=== PATIENT | female | born 1935 | race Caucasian/White ===

== ENCOUNTER 2019-01-12 15:35 | Inpatient (IN) | payer MEDICARE, OTHER ==
[~2019-01-12] VITALS: Ht 154.9 cm; Wt 89.9 kg
[2019-01-12 17:13] LABS: Basophils # (auto) 0.2 uL; Basophils % (auto) 1.1 % (0.0-2.0); Eosinophils # (auto) 0.1 uL; Hematocrit 40.5 % (36.0-46.0); Hemoglobin 13.1 g/dL (12.2-16.2); INR 1.02 (0.9-1.15); Lymphocytes # (auto) 1.7 uL; Lymphocytes % (auto) 11.8 % (10.0-50.0); Mean Corpuscular Hemoglobin 29.8 pg (28.0-32.0); Mean Corpuscular Hgb Conc. 32.4 g/dL (32.0-36.0); Mean Corpuscular Volume 91.9 fL (80.0-100.0); Monocytes # (auto) 0.7 uL; Neutrophils # (auto) 11.6 uL; Neutrophils % (auto) 81.1 % (37.0-80.0); Nucleated Red Blood Cells % 0.1 %; Partial Thromboplastin Time 26.5 sec (23.64-32.05); Platelet Count (auto) 128 10^3/uL (140-450); Red Blood Cells 4.41 10^6/uL (4.0-5.20); Red Cell Distribution Width 14.6 % (11.8-14.3); White Blood Cell 14.3 10^3/uL (4.4-10.8)
[2019-01-12 17:15] LABS: Alanine Aminotransferase 15 U/L (13-56); Albumin 3.7 g/dL (3.4-5.0); Anion Gap 6 (5-15); Aspartate Aminotransferase 18 U/L (15-37); BUN/Creatinine Ratio 23.7; Blood Urea Nitrogen 31 mg/dL (7-18); Calcium 8.8 mg/dL (8.5-10.1); Carbon Dioxide 27 mmol/L (21-32); Chloride 106 mmol/L (98-107); GFR African American 50 mL/min; GFR Non-African American 41 mL/min; Glucose 112 mg/dL (74-106); Potassium 4.5 mmol/L (3.5-5.1); Sodium 139 mmol/L (136-145)
[2019-01-12 17:21] LABS: Alkaline Phosphatase 80 U/L (45-117); Bilirubin, Total 0.4 mg/dL (0.2-1.0); Total Protein 7.6 g/dL (6.4-8.2)
[2019-01-12] MEDS ORDERED: NITROGLYCERIN 0.4 MG SL TAB SL PRN (19:15)
[2019-01-12] MEDS ORDERED: ALUM & MAG HYDROX-SIMETH LIQ(MAALOX) 30 ML PO ONE (19:15)
[2019-01-12] MEDS ORDERED: ONDANSETRON HCL 4 MG/2 ML VIAL IV PRN (19:15)
[2019-01-12] MEDS ORDERED: HYDROcodone-ACET 5/325MG TAB PO PRN (19:15)
[2019-01-12] MEDS ORDERED: ZOLPIDEM TARTRATE 5 MG TAB PO PRN (19:15)
[2019-01-12] MEDS ORDERED: ONDANSETRON HCL 4 MG/2 ML VIAL IV ONE (19:30)
[2019-01-12] MEDS ORDERED: TETANUS-DIPTH-ACEL PERTUSSIS 0.5ML SYRG IM ONE (19:30)
[2019-01-12] MEDS ORDERED: MORPHINE SULF INJ 2 MG/ML SYRINGE 1ML IV ONE (19:30)
[2019-01-12] MEDS ORDERED: MORPHINE SULF INJ 2 MG/ML SYRINGE 1ML IV PRN (21:15)
[2019-01-12 22:00] VITALS: BP 124/58
--- NOTE | 2019-01-12 22:00 | NUR ---
Telemetry admit from ER ELIASALLA COBOS admitted to Telemetry unit after SBAR received. Patient oriented to Madhavi Munroe RN primary RN, unit, room, bed, and unit policies regarding patient care and visiting hours. Patient now on continuous telemetry monitoring, tele box # 68 and telemetry reading on arrival to unit is SR. Patient placed on bedside oxygen at 2 Lpm/NC, weighed by bedscale and encouraged to call if they need something. All questions and concerns addressed, patient and family verbalized understanding, will continue to monitor Note: []
[2019-01-12] MEDS ORDERED: PRIMIDONE 50 MG TAB PO ONE (22:30)
[2019-01-12 22:36] LABS: Urine Bacteria MOD /hpf (None Seen); Urine Blood Negative /uL (Negative); Urine Specific Gravity 1.017 (1.001-1.035); Urine WBC 618 /hpf (0 - 5); Urine WBC Clumps PRESENT /hpf (None Seen)
[2019-01-12] MEDS ORDERED: VANCOMYCIN PER PHARMACY 0 MG IV SCH (22:45)
--- NOTE | 2019-01-12 22:50 | NUR ---
Respiratory note: at beside to assess pts concerns with noc cpap. VEENA Sam made aware of conversation.
[2019-01-12] MEDS: HYDROcodone-ACET 7.5/325MG TAB PO PRN (22:58)
[2019-01-12] MEDS ORDERED: VANCOMYCIN 1GM/250ML 250 ML IV SCH (23:00)
--- NOTE | 2019-01-12 23:00 | NUR ---
Respiratory note: ORDERS RECEIVED FOR NOC CPAP BY SUSI KHAN.
[2019-01-12] MEDS: SODIUM CHLORIDE 0.9% 1,000 ML IV SCH (23:22)
[2019-01-12 23:24] VITALS: BP 124/58
[2019-01-13 00:01] VITALS: BP 124/58
[2019-01-13] MEDS: PIPERACILLIN-TAZOB 2.25GM 50 ML IV SCH ×4 (01:06→17:48)
[2019-01-13] MEDS ORDERED: AMIO200T33 PO (01:23)
[2019-01-13] MEDS ORDERED: [UNRECOGNIZED DRUG - CODE] SC (01:23)
[2019-01-13] MEDS ORDERED: OMEP20TA PO (01:23)
[2019-01-13] MEDS ORDERED: LORA-622 PO (01:23)
[2019-01-13] MEDS ORDERED: METO25TA62 PO (01:23)
[2019-01-13] MEDS ORDERED: HYDR-4833 PO (01:23)
[2019-01-13] MEDS ORDERED: APIX5TAB PO (01:23)
[2019-01-13] MEDS ORDERED: ALPR0.254 PO (01:23)
[2019-01-13] MEDS ORDERED: CHOL20007 PO (01:23)
[2019-01-13] MEDS ORDERED: POTA10TA51 PO (01:23)
[2019-01-13] MEDS ORDERED: SILD50TA42 PO (01:23)
[2019-01-13] MEDS ORDERED: DILT30TA24 PO (01:23)
[2019-01-13] MEDS ORDERED: LEVO200T7 PO (01:23)
[2019-01-13] MEDS ORDERED: FURO40TA4 PO (01:23)
[2019-01-13] MEDS ORDERED: PREG75CA PO (01:23)
[2019-01-13] MEDS ORDERED: LISI-275 PO (01:23)
[2019-01-13] MEDS ORDERED: PRIM50TA5 PO (01:23)
[2019-01-13] MEDS ORDERED: CALCCHW53 OR (01:23)
--- NOTE | 2019-01-13 04:00 | NUR ---
Patient is grimacing for pain, explained that pain med is not yet due at this time. Per patient, she's taking Gowen q4 hours at home. Patient wanted to take one now as the pain is severe. Paged hospitalist, awaiting call back
[2019-01-13 05:07] VITALS: BP 109/62
--- NOTE | 2019-01-13 05:55 | NUR ---
Hospitalist Alan called back, received order at this time, will carry out order
[2019-01-13] MEDS ORDERED: KETOROLAC TROMETH 30 MG/ML 1ML VIAL IV ONE (06:00)
[2019-01-13 06:28] LABS: Hematocrit 35.1 % (36.0-46.0); Hemoglobin 11.4 g/dL (12.2-16.2); Mean Corpuscular Hgb Conc. 32.6 g/dL (32.0-36.0); Mean Corpuscular Volume 92.1 fL (80.0-100.0); Platelet Count (auto) 121 10^3/uL (140-450); Red Blood Cells 3.81 10^6/uL (4.0-5.20); Red Cell Distribution Width 14.5 % (11.8-14.3); White Blood Cell 18.8 10^3/uL (4.4-10.8)
[2019-01-13 06:34] LABS: Basophils % (manual) 0 (0.0-2.0); Blast Cells 0; Eosinophils % (manual) 0 (0-7); Promyelocytes % 0; Reactive Lymphocytes 0
[2019-01-13 06:37] LABS: Albumin 3.2 g/dL (3.4-5.0); Calcium 8.3 mg/dL (8.5-10.1); INR 1.01 (0.9-1.15); Magnesium 1.9 mg/dL (1.6-2.6); Partial Thromboplastin Time 28.1 sec (23.64-32.05); Potassium 4.7 mmol/L (3.5-5.1)
[2019-01-13 06:41] LABS: BUN/Creatinine Ratio 24.7; Bilirubin, Total 0.4 mg/dL (0.2-1.0); Phosphorus 3.6 mg/dL (2.5-4.90); Total Protein 6.4 g/dL (6.4-8.2)
[2019-01-13] MEDS: SODIUM CHLORIDE 0.9% 1,000 ML IV SCH ×2 (06:49→14:58)
[2019-01-13 06:58] LABS: Cholesterol 150 mg/dL (< 200); HDL Cholesterol 38 mg/dL (40-59); LDL Cholesterol 98 mg/dL (< 100); Triglycerides 123 mg/dL (< 150)
[2019-01-13 07:18] LABS: Band Neutrophils % (manual) 2; Lymphocytes % (manual) 7 (10.0-50.0); Metamyelocytes % 1; Monocytes % (manual) 7 (0-12); Myelocytes % 1
--- NOTE | 2019-01-13 08:15 | NUR ---
Opening Shift Note Assumed care of patient, awake, alert and oriented. No S/S of distress/SOB or pain. Instructed on POC and to call for assist PRN. Bed in lowest locked position, call light within reach, side rails up x2. Will continue to monitor for changes Q1hr and PRN.
[2019-01-13 09:00] VITALS: BP 103/58
[2019-01-13] MEDS: DOCUSATE SOD 100 MG CAP PO SCH (09:47)
[2019-01-13] MEDS: ENOXAPARIN SOD 40 MG/0.4 ML SYRINGE SC SCH (09:48)
[2019-01-13] MEDS: HYDROcodone-ACET 7.5/325MG TAB PO PRN (09:56)
--- NOTE | 2019-01-13 11:20 | NUR ---
MD ROUNDS DR Raman FISCHER AT BEDSIDE DISCUSSING POC WITH PATIENT. ALL QUESTIONS/CONCERNS ANSWERED. NEW ORDERS RECEIVED/CARRIED OUT. WILL CONTINUE TO MONITOR
--- NOTE | 2019-01-13 11:47 | NUR ---
UA URINE SAMPLE SENT
--- NOTE | 2019-01-13 12:00 | NUR ---
WOUND CARE NOTE: WOUND CONSULT ORDERED FOR PATIENT WITH WOUND TO FOREHEAD SEEN UPON ADMIT. WOUND PHOTO WAS TAKEN AT THAT TIME BY BEDSIDE NURSE FOR REFERENCE. PATIENT WAS ADMITTED TO [facility] WITH DIAGNOSIS OF PRESYNCOPE AND SHOULDER FRACTURE. PATIENT IS S/P FALL FOLLOWING AN EPISODE WITH NEAR SYNCOPE. SHE WAS RENDERED WITH AN ABRASION TO THE LEFT TEMPORAL HEAD, AND SHOULDER FRACTURE. PATIENT HAS CURRENT MARCELL SCORE OF 16. SHE IS ABLE TO SELF TURN/REPOSITION SELF. PATIENT'S ABRASION TO THE HEAD IS NOT OPEN, SCABBED CLOSED. NO NEED FOR DRESSING. IMPLEMENTED SKIN/WOUND CARE PLAN PER PROTOCOL. NO WOUND CARE MONITORING IS NEEDED AT THIS TIME.
[2019-01-13 13:00] VITALS: BP 99/57
[2019-01-13] MEDS: HYDROmorphone HCL 2 MG/ML VL IV PRN ×2 (14:57→21:43)
[2019-01-13 17:00] VITALS: BP 107/55
--- NOTE | 2019-01-13 19:20 | NUR ---
Opening Shift Note Report received from day shift RN. Assumed care of patient. Patient awake laying in bed, alert and oriented x4. No S/S of distress/SOB noted. Patient states pain is tolerable at this time. Frazier draining freely and hung below bladder free of any obstructions. Instructed on POC and to call for assist PRN. Bed locked in lowest position with side rails up x2 and bed alarm on. Call light within reach. Will continue to monitor for changes Q1hr and PRN.
[2019-01-13] MEDS: VANCOMYCIN 750mg/250ml 250 ML IV SCH (21:42)
[2019-01-13] MEDS: PRIMIDONE 50 MG TAB PO SCH (21:42)
[2019-01-13 22:30] VITALS: BP 110/54
[2019-01-14] MEDS: PIPERACILLIN-TAZOB 2.25GM 50 ML IV SCH ×4 (00:36→17:37)
[2019-01-14] MEDS: SODIUM CHLORIDE 0.9% 1,000 ML IV SCH ×3 (05:02→14:45)
[2019-01-14 05:20] VITALS: BP 113/61
--- NOTE | 2019-01-14 06:14 | NUR ---
Respiratory note: PT REQUESTING TO BE TAKEN OFF HOSPITAL CPAP UNIT AT THIS TIME. PT PLACED ON 2L NC SPO2 96% HR 66 RR 16. NO RESPIRATORY DISTRESS NOTED. RN MADE AWARE.
[2019-01-14] MEDS: HYDROmorphone HCL 2 MG/ML VL IV PRN ×3 (06:21→18:46)
[2019-01-14 09:00] VITALS: BP 120/60
[2019-01-14 09:55] LABS: Hematocrit 32.1 % (36.0-46.0); Hemoglobin 10.6 g/dL (12.2-16.2); Mean Corpuscular Hemoglobin 30.5 pg (28.0-32.0); Mean Corpuscular Volume 92.3 fL (80.0-100.0); Platelet Count (auto) 124 10^3/uL (140-450); Red Blood Cells 3.48 10^6/uL (4.0-5.20); Red Cell Distribution Width 14.7 % (11.8-14.3)
[2019-01-14 10:08] LABS: Basophils % (manual) 0 (0.0-2.0); Blast Cells 0; Promyelocytes % 0
[2019-01-14] MEDS: DOCUSATE SOD 100 MG CAP PO SCH (10:09)
[2019-01-14] MEDS: ENOXAPARIN SOD 40 MG/0.4 ML SYRINGE SC SCH (10:10)
--- NOTE | 2019-01-14 10:20 | NUR ---
Attempted PT treatment session but pt stated, "I want to do physical therapy but I am too tired right now." Advised pt we will return at a later time.
[2019-01-14 10:51] LABS: Potassium 4.3 mmol/L (3.5-5.1); Sodium 140 mmol/L (136-145)
[2019-01-14 10:52] LABS: Anion Gap 7.8 (5-15); BUN/Creatinine Ratio 19.8; Blood Urea Nitrogen 17 mg/dL (7-18); Calcium 8.1 mg/dL (8.5-10.1); Carbon Dioxide 25.2 mmol/L (21-32); Chloride 107 mmol/L (98-107); GFR African American 81 mL/min; GFR Non-African American 67 mL/min; Glucose 165.9 mg/dL (74-106)
[2019-01-14 12:17] LABS: Band Neutrophils % (manual) 1; Eosinophils % (manual) 2 (0-7); Lymphocytes % (manual) 15 (10.0-50.0); Metamyelocytes % 1; Monocytes % (manual) 5 (0-12); Myelocytes % 2; Reactive Lymphocytes 1
[2019-01-14 13:00] VITALS: BP 140/71
[2019-01-14 17:00] VITALS: BP 155/71
--- NOTE | 2019-01-14 18:00 | NUR ---
IV removal IV to left hand DC'd, due to dislodgement,with sterile technique, catheter fully intact. Pressure dressing applied to site. Patient tolerated procedure well.
--- NOTE | 2019-01-14 18:00 | NUR ---
IV insertion IV access obtained, via clean sterile technique by inserting 22 gauge catheter at left forearm after one attempt IV secured properly. No trauma to site. Patient tolerated procedure well.
[2019-01-14 22:00] VITALS: BP 126/59
[2019-01-14] MEDS: PRIMIDONE 50 MG TAB PO SCH (22:22)
[2019-01-14] MEDS: VANCOMYCIN 750mg/250ml 250 ML IV SCH (22:22)
[2019-01-15] MEDS: SODIUM CHLORIDE 0.9% 1,000 ML IV SCH ×3 (00:08→16:07)
[2019-01-15] MEDS: PIPERACILLIN-TAZOB 2.25GM 50 ML IV SCH ×3 (00:08→11:32)
[2019-01-15] MEDS: HYDROmorphone HCL 2 MG/ML VL IV PRN ×3 (00:58→19:25)
[2019-01-15 06:00] VITALS: BP 122/60
--- NOTE | 2019-01-15 06:35 | NUR ---
Respiratory note: PT REQUESTING TO BE TAKEN OFF HOSPITAL CPAP UNIT AT THIS TIME. PT PLACED ON 2L NC SPO2 96% HR 61 RR 16. NO RESPIRATORY DISTRESS NOTED. RN MADE AWARE.
[2019-01-15 06:50] LABS: Hematocrit 30.4 % (36.0-46.0); Hemoglobin 9.9 g/dL (12.2-16.2); Mean Corpuscular Hgb Conc. 32.5 g/dL (32.0-36.0); Mean Corpuscular Volume 92.3 fL (80.0-100.0); Platelet Count (auto) 121 10^3/uL (140-450); Red Cell Distribution Width 14.5 % (11.8-14.3)
[2019-01-15 07:01] LABS: BUN/Creatinine Ratio 15.3; Calcium 8.2 mg/dL (8.5-10.1); Potassium 4.6 mmol/L (3.5-5.1)
[2019-01-15 07:02] LABS: Basophils % (manual) 0 (0.0-2.0); Blast Cells 0; Myelocytes % 0; Promyelocytes % 0; Reactive Lymphocytes 0
--- NOTE | 2019-01-15 07:20 | NUR ---
Open Shift Note Received report on patient, awake and sitting up in bed. Patient shows no signs of distress at this time but states she has pain in right shoulder. Discussed pain management with patient but patient states she does not want any medication at this time. Patient also states she takes multiple medications at home but is not receiving them here. Verified home medications in the med rec and stated the Dr will be made aware today. Patient verbalized understanding. Discussed rest of POC with patient and transition nurse Tiffany. Bed in lowest locked position, side rails up x2 and call light within reach. Will continue to monitor.
[2019-01-15 07:53] LABS: Band Neutrophils % (manual) 1; Eosinophils % (manual) 2 (0-7); Lymphocytes % (manual) 16 (10.0-50.0); Metamyelocytes % 2; Monocytes % (manual) 15 (0-12)
[2019-01-15 09:00] VITALS: BP 135/74
[2019-01-15] MEDS: ENOXAPARIN SOD 40 MG/0.4 ML SYRINGE SC SCH (09:55)
[2019-01-15] MEDS: DOCUSATE SOD 100 MG CAP PO SCH (10:00)
--- NOTE | 2019-01-15 11:47 | NUR ---
Cheryl Had sling delivered to patient bedside but patient states that Dr Yu told her Bryson from Ortho would be coming to apply it. Paged Bryson from ortho, awaiting call back.
[2019-01-15 13:00] VITALS: BP 149/75
[2019-01-15] MEDS ORDERED: MILK OF MAGNESIA 30ML SUSP PO ONE (13:45)
[2019-01-15] MEDS ORDERED: LISINOPRIL 5 MG TAB PO ONE (13:45)
[2019-01-15] MEDS ORDERED: AMIODARONE HCL 200 MG TAB PO ONE (13:45)
[2019-01-15] MEDS: PRIMIDONE 50 MG TAB PO SCH ×2 (14:36→22:52)
--- NOTE | 2019-01-15 16:00 | NUR ---
D/C Planning Per consult for SNF placement. Pt requested [facility]. Contacted [facility] Ph:) Fax:) Faxed medical records. Per Charley from [facility] Pt has been accepted to room [address] Armenta. Will set up transportation upon d/c day. Informed VEENA Pulido. Addendum: 01/16/19 at 0856 by SARY ONEAL Amended: Links added.
[2019-01-15] MEDS: SILDENAFIL CITRATE 20 MG TAB PO SCH ×2 (16:27→21:00)
[2019-01-15 17:00] VITALS: BP 157/78
[2019-01-15] MEDS ORDERED: cefTRIAXone 1GM/50ML D5W 50 ML IV SCH (17:00)
--- NOTE | 2019-01-15 19:17 | NUR ---
End of Shift Endorsed care to NOC nurse. Patient shows no signs of distress at this time.
--- NOTE | 2019-01-15 19:30 | NUR ---
Opening Shift Note Assumed care of patient, awake and alert. Medicated for pain 5 mins. earlier. Instructed on POC and to call for assist PRN; RN will continue to monitor for changes Q1hr and PRN. HOB in semi-Prince's position. R arm in sling. Nurse call light within reach of pt's left hand. Bed in low position and locked. HOB rails x2 up.
[2019-01-15] MEDS: APIXABAN 5 MG TAB PO SCH (22:00)
[2019-01-15] MEDS: PREGABALIN CAPSULE 75 MG CAP PO SCH (22:00)
[2019-01-15 22:58] VITALS: BP 109/56
[2019-01-16] MEDS: SODIUM CHLORIDE 0.9% 1,000 ML IV SCH (02:05)
[2019-01-16] MEDS: HYDROmorphone HCL 2 MG/ML VL IV PRN ×2 (02:30→11:15)
--- NOTE | 2019-01-16 02:34 | NUR ---
Dilaudid given for pain in R shoulder.
[2019-01-16 03:14] VITALS: BP 109/56
[2019-01-16 05:42] VITALS: BP 95/49
--- NOTE | 2019-01-16 06:28 | NUR ---
Respiratory note: PT REMOVED FROM THE CPAP PER HER REQUEST AND HAS BEEN PLACED ON A 2L NC. NO SOB NOTED. POX 92%, HR 63, RR 14. CONTINUOUS POX REMAINS ON AND FUNCTIONAL. ALARMS ARE ON AND AUDIBLE.
[2019-01-16 07:00] LABS: Hematocrit 28.8 % (36.0-46.0); Hemoglobin 9.5 g/dL (12.2-16.2); Mean Corpuscular Hemoglobin 30.8 pg (28.0-32.0); Mean Corpuscular Hgb Conc. 33.1 g/dL (32.0-36.0); Mean Corpuscular Volume 93.2 fL (80.0-100.0); Platelet Count (auto) 127 10^3/uL (140-450); Red Blood Cells 3.09 10^6/uL (4.0-5.20); Red Cell Distribution Width 14.2 % (11.8-14.3); White Blood Cell 10.9 10^3/uL (4.4-10.8)
[2019-01-16] MEDS ORDERED: LEVOTHYROXINE SODIUM 25 MCG TAB PO SCH (07:00)
[2019-01-16 07:03] LABS: Band Neutrophils % (manual) 0; Basophils % (manual) 0 (0.0-2.0); Blast Cells 0; Promyelocytes % 0; Reactive Lymphocytes 0
--- NOTE | 2019-01-16 07:18 | NUR ---
Opening Note Received report on the patient. Awake lying in bed. Patient shows no signs of distress at this time. Discussed plan of care with the patient. bed is in lowest position, side rails up x2, and call light is within reach. Will continue to monitor.
[2019-01-16 07:42] LABS: Eosinophils % (manual) 5 (0-7); Lymphocytes % (manual) 14 (10.0-50.0); Metamyelocytes % 4; Monocytes % (manual) 8 (0-12); Myelocytes % 3
[2019-01-16] MEDS: SILDENAFIL CITRATE 20 MG TAB PO SCH ×2 (08:32→15:21)
[2019-01-16 08:52] VITALS: BP 138/70
[2019-01-16] MEDS ORDERED: LISINOPRIL 5 MG TAB PO SCH (10:00)
[2019-01-16] MEDS ORDERED: DILTIAZEM HCL 60 MG TAB PO SCH (10:00)
[2019-01-16] MEDS: DOCUSATE SOD 100 MG CAP PO SCH (10:00)
[2019-01-16] MEDS ORDERED: METOPROLOL SUCCINATE XL 50 MG TAB PO SCH (10:00)
[2019-01-16] MEDS ORDERED: AMIODARONE HCL 200 MG TAB PO SCH (10:00)
[2019-01-16] MEDS: PREGABALIN CAPSULE 75 MG CAP PO SCH (10:00)
[2019-01-16] MEDS ORDERED: POTASSIUM CHL 20 Meq TABLET PO SCH (10:00)
[2019-01-16] MEDS ORDERED: FUROSEMIDE 20 MG TAB PO SCH (10:00)
[2019-01-16] MEDS: APIXABAN 5 MG TAB PO SCH (10:00)
[2019-01-16] MEDS: PRIMIDONE 50 MG TAB PO SCH (11:14)
[2019-01-16 11:55] VITALS: BP 138/70
--- NOTE | 2019-01-16 12:20 | NUR ---
D/C planning Contacted [facility] Ph:) spoke to Hernandez. Advised Hernandez from [facility] to arrange transportation between 14:30-15:30 via gurney with oxygen. Informed VEENA Pulido.
--- NOTE | 2019-01-16 12:30 | NUR ---
Report Given to [facility] Report given to [facility]. Receiving nurse Blanca. Report given by transition nurse Tiffany.
[2019-01-16 13:00] VITALS: BP 125/67
--- NOTE | 2019-01-16 15:00 | NUR ---
Transferred Patient transferred to [facility]. Room 407-1. Patient shows no signs of distress at this time. Wound photo taken of forehead. IV removed using clean, sterile technique, catheter intact and dressing applied. Tele box removed, cleaned and sent back to ICU. Frazier in place and will remain in place to [place] per doctor's request.
--- NOTE | 2019-01-16 16:58 | NUR ---
assessment Patient is a 83 year old female who is alert and oriented. Patients cognitive abilities are intact. Prior to admission patient lived home with family and functioned with assistance. Per patient she has agreed to SNF placement at [facility]. Patient informed me she has a rollator and wheelchair for home use. Patient informed me her PCP is Dr Herrera in [facility]. Patients family assist her at home with cooking and cleaning and driving. I informed patient she has a right to speak to a social media project manager regarding all care. I informed patient she has a right to participate in any and all discharge planning. Patient has a POA and advanced directive. Patients daughter Radha Mays is her POA. Patient verbalized understanding and agreed to discharge plan to SNF.. Addendum: 01/16/19 at 1701 by Maggie VILLA Amended: Links added.
== END 2019-01-16 15:05 | DRG 871 ==
LOC: ER 15:35 → EDBD 15:35 → TELE 15:36 → TELE-WESTW 21:36
PROVIDERS: ADMIT Hospitalist; ATTEND Family Medicine
DX: A41.9 Sepsis, unspecified organism (principal); R65.21 Severe sepsis with septic shock; S42.211A Unspecified displaced fracture of surgical neck of right humerus, initial encounter for closed fracture; S42.251A Displaced fracture of greater tuberosity of right humerus, initial encounter for closed fracture; S42.261A Displaced fracture of lesser tuberosity of right humerus, initial encounter for closed fracture; L03.115 Cellulitis of right lower limb; L03.116 Cellulitis of left lower limb; N39.0 Urinary tract infection, site not specified; I13.0 Hypertensive heart and chronic kidney disease with heart failure and stage 1 through stage 4 chronic kidney disease, or unspecified chronic kidney disease; S00.03XA Contusion of scalp, initial encounter; N18.3 Chronic kidney disease, stage 3 (moderate); G25.0 Essential tremor; R26.9 Unspecified abnormalities of gait and mobility; G47.33 Obstructive sleep apnea (adult) (pediatric); I48.91 Unspecified atrial fibrillation; J44.9 Chronic obstructive pulmonary disease, unspecified; W18.39XA Other fall on same level, initial encounter; C50.919 Malignant neoplasm of unspecified site of unspecified female breast; I87.2 Venous insufficiency (chronic) (peripheral); I50.9 Heart failure, unspecified; G47.00 Insomnia, unspecified; M81.0 Age-related osteoporosis without current pathological fracture; E66.9 Obesity, unspecified; M25.411 Effusion, right shoulder; D69.6 Thrombocytopenia, unspecified; Y93.89 Activity, other specified; Y99.8 Other external cause status; Z90.49 Acquired absence of other specified parts of digestive tract; Y92.098 Other place in other non-institutional residence as the place of occurrence of the external cause; Z87.440 Personal history of urinary (tract) infections; Z95.0 Presence of cardiac pacemaker; Z82.49 Family history of ischemic heart disease and other diseases of the circulatory system; Z80.3 Family history of malignant neoplasm of breast; Z82.3 Family history of stroke; Z91.041 Radiographic dye allergy status; Z88.8 Allergy status to other drugs, medicaments and biological substances; Z85.72 Personal history of non-Hodgkin lymphomas; Z23 Encounter for immunization; Z79.899 Other long term (current) drug therapy; Z68.37 Body mass index [BMI] 37.0-37.9, adult
CPT/HCPCS: 36415; 70450; 71045; 72125; 73030; 73200; 80048; 80053; 80061; 80202; 81001; 83036; 83735; 84100; 84484; 85007; 85025; 85027; 85610; 85730; 87040; 87081; 87086; 90715; 93005; 93306; 94660; 97116; 97163; 97530; G0378; J0696; J1885; J2405; J2543

== ENCOUNTER 2019-03-03 17:30 | Inpatient (IN) | payer MEDICARE, OTHER ==
[~2019-03-03] VITALS: Ht 154.9 cm; Wt 89.8 kg
[~2019-03-03 17:30] MED LIST: ALPR0.254 PO; AMIO200T33 PO; APIX5TAB PO; CALCCHW53 OR; CHOL20007 PO; DILT30TA24 PO; FURO40TA4 PO; HYDR-4833 PO; LEVO200T7 PO; LISI-275 PO; LORA-622 PO; METO25TA93 PO; OMEP20TA PO; POTA10TA51 PO; PREG75CA PO; PRIM50TA5 PO; SILD50TA42 PO; [UNRECOGNIZED DRUG - CODE] SC
[2019-03-03 18:42] LABS: Basophils # (auto) 0.1 uL; Basophils % (auto) 1.3 % (0.0-2.0); Eosinophils # (auto) 0.2 uL; Eosinophils % (auto) 2.1 % (0.0-7.0); Hematocrit 39.8 % (36.0-46.0); Hemoglobin 13.1 g/dL (12.2-16.2); Lymphocytes # (auto) 1.7 uL; Lymphocytes % (auto) 19.7 % (10.0-50.0); Mean Corpuscular Hemoglobin 30.4 pg (28.0-32.0); Mean Corpuscular Hgb Conc. 32.8 g/dL (32.0-36.0); Mean Corpuscular Volume 92.6 fL (80.0-100.0); Monocytes # (auto) 0.8 uL; Monocytes % (auto) 9.1 % (0.0-12.0); Neutrophils % (auto) 67.8 % (37.0-80.0); Platelet Count (auto) 149 10^3/uL (140-450); Red Blood Cells 4.29 10^6/uL (4.0-5.20); Red Cell Distribution Width 14.8 % (11.8-14.3); White Blood Cell 8.9 10^3/uL (4.4-10.8)
[2019-03-03 18:57] LABS: INR 1.12 (0.9-1.15); Partial Thromboplastin Time 27.3 sec (23.64-32.05)
[2019-03-03 18:57] LABS: Urine Amorphous Crystal FEW /hpf (None Seen); Urine Bacteria NONE SEEN /hpf (None Seen); Urine Blood Negative /uL (Negative); Urine Specific Gravity 1.008 (1.001-1.035); Urine WBC 3 /hpf (0 - 5)
[2019-03-03 19:01] LABS: Albumin 3.2 g/dL (3.4-5.0); Anion Gap 7 (5-15); Blood Urea Nitrogen 18 mg/dL (7-18); Calcium 8.2 mg/dL (8.5-10.1); Carbon Dioxide 27 mmol/L (21-32); Chloride 108 mmol/L (98-107); Glucose 93 mg/dL (74-106); Magnesium 2.3 mg/dL (1.6-2.6); Potassium 3.8 mmol/L (3.5-5.1); Sodium 142 mmol/L (136-145)
[2019-03-03 19:07] LABS: Alanine Aminotransferase 15 U/L (13-56); Alkaline Phosphatase 67 U/L (45-117); Aspartate Aminotransferase 16 U/L (15-37); Bilirubin, Total 0.3 mg/dL (0.2-1.0); GFR African American 99 mL/min; GFR Non-African American 82 mL/min; Total Protein 6.6 g/dL (6.4-8.2)
[2019-03-03] MEDS ORDERED: AMIODARONE HCL 150 MG in D5W 5% 100 ML IV ONE ×2 (19:15→22:00)
[2019-03-03] MEDS ORDERED: SODIUM CHLORIDE 0.9% 500 ML IV ONE ×3 (19:15→21:15)
[2019-03-03] MEDS ORDERED: AMIODARONE HCL 900 MG in DEXTROSE 500 ML IV SCH (19:16)
[2019-03-03] MEDS ORDERED: AMIODARONE HCL (50 MG/ ML) 3 ML VIAL IV ONE (19:23)
[2019-03-03] MEDS ORDERED: SODIUM BICARBONATE 8.4% INJ 50ML SYRINGE ONE (19:45)
[2019-03-03] MEDS ORDERED: MORPHINE SULF INJ 2 MG/ML SYRINGE 1ML IV ONE ×2 (20:30→23:00)
[2019-03-03] MEDS: NOREPINEPHRINE 8 MG/250ML KIT 250 ML IV SCH (22:24)
[2019-03-03] MEDS ORDERED: ACETAMINOPHEN 325 MG TAB PO PRN (22:45)
[2019-03-03] MEDS ORDERED: LORazepam 0.5 MG TAB PO PRN (22:45)
[2019-03-03] MEDS ORDERED: ONDANSETRON HCL 4 MG/2 ML VIAL IV PRN (22:45)
[2019-03-03] MEDS ORDERED: MORPHINE SULFATE 4 MG/ML SYR/VIAL IV PRN (22:45)
[2019-03-03] MEDS ORDERED: NITROGLYCERIN 0.4 MG SL TAB SL PRN (22:45)
[2019-03-03] MEDS ORDERED: HYDROmorphone HCL 2 MG/ML VL IV PRN (22:45)
[2019-03-03] MEDS ORDERED: ALPRAZolam 0.25 MG TAB PO PRN (22:45)
[2019-03-03] MEDS ORDERED: MORPHINE SULF INJ 2 MG/ML SYRINGE 1ML IV PRN (22:45)
[2019-03-03] MEDS ORDERED: DOCUSATE SOD 100 MG CAP PO PRN (22:45)
[2019-03-03] MEDS: SODIUM CHLORIDE 0.9% 1,000 ML IV SCH (23:01)
[2019-03-03] MEDS: HYDROcodone-ACET 5/325MG TAB PO PRN (23:02)
[2019-03-04] MEDS ORDERED: AMIODARONE HCL 900 MG in DEXTROSE 500 ML IV SCH (01:16)
[2019-03-04] MEDS ORDERED: PATIENTS OWN MEDICATION (Metoprolol Succinate (Metoprolol Succinate Er) 25 MG) PO SCH (04:15)
[2019-03-04] MEDS ORDERED: METOPROLOL TARTRATE 1MG/1ML-5ML VIAL IV ONE (05:00)
[2019-03-04] MEDS: PRIMIDONE 50 MG TAB PO SCH ×3 (05:04→22:14)
[2019-03-04] MEDS: ALUM & MAG HYDROX-SIMETH LIQ(MAALOX) 30 ML PO PRN (05:26)
[2019-03-04] MEDS: LEVOTHYROXINE SODIUM 100 MCG TAB PO SCH (06:32)
[2019-03-04] MEDS: METOPROLOL SUCCINATE XL 50 MG TAB PO SCH (10:00)
[2019-03-04 11:31] LABS: Hematocrit 41.2 % (36.0-46.0); Hemoglobin 13.4 g/dL (12.2-16.2); Mean Corpuscular Hemoglobin 30.6 pg (28.0-32.0); Mean Corpuscular Hgb Conc. 32.7 g/dL (32.0-36.0); Mean Corpuscular Volume 93.7 fL (80.0-100.0); Platelet Count (auto) 161 10^3/uL (140-450); Red Blood Cells 4.39 10^6/uL (4.0-5.20); Red Cell Distribution Width 15.2 % (11.8-14.3); White Blood Cell 11.2 10^3/uL (4.4-10.8)
[2019-03-04] MEDS: AMIODARONE HCL 200 MG TAB PO SCH (12:07)
[2019-03-04] MEDS: POTASSIUM CHL 20 Meq TABLET PO SCH (12:08)
[2019-03-04] MEDS: PANTOPRAZOLE 40 MG TAB PO SCH (12:08)
[2019-03-04] MEDS: APIXABAN 5 MG TAB PO SCH ×2 (12:08→22:13)
[2019-03-04 12:09] LABS: BUN/Creatinine Ratio 23.7; Potassium 3.9 mmol/L (3.5-5.1)
[2019-03-04 12:20] LABS: Basophils % (manual) 0 (0.0-2.0); Blast Cells 0; Metamyelocytes % 0; Promyelocytes % 0; Reactive Lymphocytes 0
[2019-03-04 13:41] LABS: Band Neutrophils % (manual) 2; Eosinophils % (manual) 2 (0-7); Lymphocytes % (manual) 28 (10.0-50.0); Monocytes % (manual) 9 (0-12); Myelocytes % 1
[2019-03-04] MEDS: SODIUM CHLORIDE 0.9% 1,000 ML IV SCH (18:49)
[2019-03-04] MEDS: NOREPINEPHRINE 8 MG/250ML KIT 250 ML IV SCH (21:49)
[2019-03-05 00:50] VITALS: BP 150/84
--- NOTE | 2019-03-05 00:50 | NUR ---
Admit to [facility] ALLA GRIFFIN admitted to [facility] via gurney on civil preparedness training officer, and portable 02. Patient transferred to bed, connected to unit monitoring and oxygen, and weighed by bedscale. Patient oriented to Karina Powers, primary RN, unit, room, bed, and unit policies regarding patient care and visiting hours. All questions and concerns addressed, patient verbalized understanding. Pt states is in ER as a patient. Pt very chatty and in pleasant mood. Very protective of her right shoulder that is in a sling, will now allow staff to look under clothing and sling due to potentially causing more pain.
--- NOTE | 2019-03-05 01:52 | NUR ---
CPAP: Pt states she uses CPAP machine at home at night during sleep. Pt's primary RN obtained order for CPAP initiation. Respiratory notified of new order and pt request for use of CPAP.
--- NOTE | 2019-03-05 02:00 | NUR ---
Pt request CPAP, paged and order received. Pt refused pain medication for shoulder. Fell asleep as soon as CPAP was applied.
[2019-03-05 02:55] VITALS: BP 98/52
[2019-03-05 04:00] VITALS: BP 94/44
[2019-03-05] MEDS: LEVOTHYROXINE SODIUM 100 MCG TAB PO SCH (07:00)
--- NOTE | 2019-03-05 07:00 | NUR ---
Pt remained stable this shift. Slept through to breakfast time. Report given, care endorsed.
[2019-03-05 08:00] VITALS: BP 94/48
--- NOTE | 2019-03-05 08:00 | NUR ---
Opening Shift Note Assumed care of patient, laying in bed, eyes closed, arousable to voice, oriented x4. No S/S of distress/SOB or pain. Patient on CPAP, saturation 100%. Patient wearing sling on RT arm due to fracture s/p fall two months ago. Patient refused her RT shoulder and arm to be checked. See interventions for complete assessment. Bed locked on low position, side rails up x2, bed alarms on at timed, call avina within reach, Insructed on POC and to callfor assist PRN, will continue to monitor for changes Q1hr and PRN.
--- NOTE | 2019-03-05 08:50 | NUR ---
Respiratory note: PT AWAKE, REQUESTING TO COME OFF CPAP. TOOK PT OFF CPAP, PLACED ON 3L NC. HR 66, RR 14, POX 99%. BREATH SOUNDS CLEAR/DIMINISHED, NO S/S OF RESPIRATORY DISTRESS.
--- NOTE | 2019-03-05 08:52 | NUR ---
Urine sample sent to lab
--- NOTE | 2019-03-05 09:00 | NUR ---
Patient switched from CPAP to 3 LPM oxygen via nasal cannula, patient tolerating well. Saturation 92%. Will continue to monitor.
[2019-03-05] MEDS: METOPROLOL SUCCINATE XL 50 MG TAB PO SCH (10:00)
--- NOTE | 2019-03-05 10:15 | NUR ---
Dr Chester at bedside, updated on patient's status. Patient seen and examined. Received verbal order to start patient on Xanax 0.5 mg TID for anxiety. Orders read back and verified. Will carry out.
[2019-03-05] MEDS: AMIODARONE HCL 200 MG TAB PO SCH (10:34)
[2019-03-05] MEDS: SODIUM CHLORIDE 0.9% 1,000 ML IV SCH (10:34)
[2019-03-05] MEDS: PRIMIDONE 50 MG TAB PO SCH ×2 (10:35→22:11)
[2019-03-05] MEDS: POTASSIUM CHL 20 Meq TABLET PO SCH (10:35)
[2019-03-05] MEDS: APIXABAN 5 MG TAB PO SCH ×2 (10:35→22:11)
[2019-03-05] MEDS: PANTOPRAZOLE 40 MG TAB PO SCH (10:35)
[2019-03-05] MEDS: ALPRAZolam 0.5 MG TAB PO PRN ×2 (10:40→23:36)
[2019-03-05 12:11] VITALS: BP 114/54
[2019-03-05] MEDS: HYDROcodone-ACET 5/325MG TAB PO PRN ×2 (14:12→20:56)
--- NOTE | 2019-03-05 18:40 | NUR ---
Respiratory note: PT ASSESSED FOR PRN MED NEB TX. HR 60, RR 15, SPO2 92% ON RA. NO SIGNS OF ANY RESPIRATORY DISTRESS NOTED. ADVISED PT TO CALL IF TX IS NEEDED. RT NAME AND PAGER NUMBER WRITTEN ON BOARD.
--- NOTE | 2019-03-05 19:15 | NUR ---
Opening Shift Note Assumed care of patient oriented x4. No S/S of distress/SOB or pain. Patient wearing sling on RT arm due to fracture s/p fall two months ago. Patient refused her RT shoulder and arm to be checked. See interventions for complete assessment. Bed locked on low position, side rails up x2, bed alarms on at timed, call avina within reach, Insructed on POC and to call for assist
[2019-03-05 20:00] VITALS: BP 113/51
--- NOTE | 2019-03-05 22:00 | NUR ---
pm care patient teeth brushed, face washed. patient ready for bed awaiting to be placed on cpap
[2019-03-06] VITALS (7 sets, daily range): BP systolic 109–141; BP diastolic 55–69
--- NOTE | 2019-03-06 | NUR ---
patient was placed on cpap
[2019-03-06] MEDS: SODIUM CHLORIDE 0.9% 1,000 ML IV SCH (00:48)
--- NOTE | 2019-03-06 02:00 | NUR ---
patient refused bed bath patient stated "I'm in too much pain to be cleaned" Addendum: 03/06/19 at 0343 by Hubert Jones RN RN then patient fell back asleep
[2019-03-06] MEDS: LEVOTHYROXINE SODIUM 100 MCG TAB PO SCH (07:06)
--- NOTE | 2019-03-06 07:30 | NUR ---
Opening Shift Note Assumed care of patient, laying in bed, eyes closed, arousable to voice. No S/S of distress/SOB or pain. Patient on CPAP, saturation 100%. See interventions for complete assessment. Bed locked on low position, side rails up x2, bed alarms on at all times, call avina within reach, instructed on POC and to call for assist PRN, will continue to monitor for changes Q1hr and PRN.
--- NOTE | 2019-03-06 08:01 | NUR ---
Dr Chester at bedside, updated on patient's status. Patient seen and examined. Received verbal order to discontinue IV fluids. Orders read back and verified. Will carry out.
--- NOTE | 2019-03-06 08:25 | NUR ---
Respiratory note: PT TAKEN OFF CPAP AND PLACED ON 1 L NC. NO SIGNS OR SYMPTOMS OF RESPIRATORY DISTRESS.
--- NOTE | 2019-03-06 08:35 | NUR ---
Patient switched from CPAP to 3 LPM oxygen via nasal cannula. Patient saturation 97%. Will continue to monitor.
[2019-03-06] MEDS: AMIODARONE HCL 200 MG TAB PO SCH (09:16)
[2019-03-06] MEDS: APIXABAN 5 MG TAB PO SCH ×2 (09:16→21:41)
[2019-03-06] MEDS: POTASSIUM CHL 20 Meq TABLET PO SCH (09:16)
[2019-03-06] MEDS: PANTOPRAZOLE 40 MG TAB PO SCH (09:17)
[2019-03-06] MEDS: PRIMIDONE 50 MG TAB PO SCH ×2 (09:17→21:47)
[2019-03-06] MEDS: METOPROLOL SUCCINATE XL 50 MG TAB PO SCH (09:17)
--- NOTE | 2019-03-06 09:42 | NUR ---
Dr Haro at bedside, updated on patient's status. Patient seen and examined. Will carry out new orders.
--- NOTE | 2019-03-06 09:45 | NUR ---
Dr Haro at bedside, patient seen and examined. Plan to start patient on Digoxin. Per Dr Haro, patient can go Telemetry floor.
[2019-03-06] MEDS ORDERED: DIGOXIN 0.125 MG TAB PO ONE (10:45)
--- NOTE | 2019-03-06 11:44 | NUR ---
Spoke to Dr Chester over the phone, updated on patient's status. Received telephone order to transfer patient to Telemetry floor. Orders read back and verified. Will carry out.
[2019-03-06] MEDS ORDERED: LACTULOSE 20Gm/30ML SOLN PO PRN (11:45)
[2019-03-06] MEDS: ALUM & MAG HYDROX-SIMETH LIQ(MAALOX) 30 ML PO PRN ×2 (12:10→17:54)
[2019-03-06] MEDS: HYDROcodone-ACET 5/325MG TAB PO PRN (14:49)
--- NOTE | 2019-03-06 16:21 | NUR ---
assessment Patient is a 83 year old female who is alert and oriented. Per patients daughter Radha Mays prior to admission patient resided with her. Per Radha patient will return home with her on discharge. I informed Radha patient has a ss consult for hospice. Per Radha she has requested [facility] to provide service. MD order was sent to [facility] by Yas GARCIA 1. Hospice evaluation to be done tonight or in the morning. Radha has been notified. Radha verbalized understanding and agreed to discharge plan home on hospice. Addendum: 03/06/19 at 1624 by Maggie VILLA Amended: Links added.
--- NOTE | 2019-03-06 16:24 | NUR ---
D/C Planning Per for hospice. Information and choice letter was given to Patient Daughter Radha via phone at 15:59. Radha requested [facility]. Contact and faxed medical records to [facility] ) Fax:). Per Nemo from Hospice she will be coming tomorrow 03/07/19 at 10am to speak to Radha. Addendum: 03/06/19 at 1627 by SARY ONEAL Amended: Links added.
--- NOTE | 2019-03-06 19:15 | NUR ---
Opening notes Assumed care, awake and oriented with no signs of distress, no complaints of pain at this time, on O2 @ 3L/min, SPO2 93%, right arm sling in place, PIV patent and intact, briseno catheter draining to a pale yellow urine. Bed in lowest position with side rails up, bed alarm on. Will continue care.
[2019-03-07 04:00] VITALS: BP 120/63
--- NOTE | 2019-03-07 06:00 | NUR ---
Refused morning care
[2019-03-07] MEDS: LEVOTHYROXINE SODIUM 100 MCG TAB PO SCH (06:04)
--- NOTE | 2019-03-07 06:15 | NUR ---
Respiratory note: I GOT PAGED BY RN DANNIE IN [facility] AT THIS TIME TO NOTIFY ME THAT SHE TOOK PATIENT OFF CPAP AND PLACED ON 3L NC. HR 60, RR 14, SPO2 100%. NO RESP DISTRESS NOTED.
--- NOTE | 2019-03-07 06:15 | NUR ---
Patient requested to switch back CPAP to O2/nasal cannula @ 3L/min, SPO2 100%. Will inform RT
--- NOTE | 2019-03-07 06:35 | NUR ---
RT aware that pt is now on O2 @ 3L/min.
--- NOTE | 2019-03-07 06:49 | NUR ---
Patient's O2 titrated down to 2L/min per pt's req., sat 99-100%, HR 60. R 11-12, no SOB or complaints noted.
--- NOTE | 2019-03-07 07:35 | NUR ---
Dr. Haro at the bedside, seen patient at this time, plan of care discussed with patient. Per MD, in his stand point, patient can discharge home.
[2019-03-07 07:53] VITALS: BP 133/71
--- NOTE | 2019-03-07 08:10 | NUR ---
Opening Shift Note Assumed care of patient, awake and alert, lying on the bed with elevated HOB. No S/S of distress/SOB or pain at this time, patient stated that don't touch her right arm because her arm broken, no edema noted at right arm, able to move all her extremities, follow direction. Instructed on POC and to call for assist PRN, will continue to monitor for changes Q1hr and PRN.
--- NOTE | 2019-03-07 08:25 | NUR ---
Patient sitting up for having breakfast, patient able to use left hand feed herself but need to prepare the table for her. Call light within reach.
[2019-03-07] MEDS: APIXABAN 5 MG TAB PO SCH ×2 (09:20→20:47)
[2019-03-07] MEDS: AMIODARONE HCL 200 MG TAB PO SCH (09:21)
[2019-03-07] MEDS: DIGOXIN 0.125 MG TAB PO SCH (09:22)
[2019-03-07] MEDS: METOPROLOL SUCCINATE XL 50 MG TAB PO SCH (09:23)
[2019-03-07] MEDS: PRIMIDONE 50 MG TAB PO SCH ×2 (09:23→20:46)
[2019-03-07] MEDS: PANTOPRAZOLE 40 MG TAB PO SCH ×2 (09:23→20:45)
--- NOTE | 2019-03-07 09:45 | NUR ---
Patient had 100% of breakfast, no N/V noted. Patient asked for bedpan at his time.
[2019-03-07] MEDS: POTASSIUM CHL 20 Meq TABLET PO SCH (10:00)
--- NOTE | 2019-03-07 10:15 | NUR ---
Patient had soft BM with brown color, perineal care and briseno's catheter care provided. Position changed at his time as well, turned to right side, patient stated that she just doesn't want to be turned at the night time only because she cannot go back to sleep after turned. Will continue plan of care.
--- NOTE | 2019-03-07 10:45 | NUR ---
Dr. Chester at the bedside, seen and examined patient at this time, her daughter also at the bedside, plan of care discussed with patient and family, plan to discharge home with Home health tomorrow, received order for transfer to [facility]. Her will discharge home today with hospice, her daughter requested to discharge patient possible tomorrow.
--- NOTE | 2019-03-07 11:10 | NUR ---
Staff from Hospice at the bedside, provided the information about the hospice, her daughter also at the bedside. Dr. Rodriguez at the bedside, seen patient for evaluation, received orders for PT request and Start Lyrica 75 mg 1 tab PO BID. Patient made aware.
--- NOTE | 2019-03-07 11:35 | NUR ---
ALLEN (Maggie) at the bedside, talked to patient and her daughter at the bedside, will resume [facility] health and cancel Hospice at this time.
--- NOTE | 2019-03-07 11:51 | NUR ---
Made the appointment to follow up with Dr. Haro in 3 weeks after D/C home: Apr 05, 2019 at 1.45 pm, patient and her daughter made aware.
[2019-03-07 11:58] VITALS: BP 103/47
--- NOTE | 2019-03-07 12:06 | NUR ---
Nutrition Assessment Notes please see attached link for complete assessment Est. Needs ABW 69 k-1380kcal (17-20 kcal/kgBW), 69-75 gms pro (1.0-1.1 gms/kgBW). Will continue to monitor pertinent labs and reassess nutrient need prn Addendum: 03/07/19 at [address] Amended: Links added.
--- NOTE | 2019-03-07 12:34 | NUR ---
Briseno catheter dc'd Order to discontinue briseno catheter. Briseno dc'd with clean technique following deflation of balloon. Patient tolerated well with no complaints of pain. Continue care.
--- NOTE | 2019-03-07 13:20 | NUR ---
Dr. Nova at the bedside, seen and examined patient at his time, plan of care discussed with patient, no new order, recommend patient to do exercise at right hand as much as possible, patient still having a lot of pain when moving. Will provided pain medication after Lunch. Patient sitting up on the bed for having Lunch. Will continue to monitor and care.
[2019-03-07] MEDS: HYDROcodone-ACET 5/325MG TAB PO PRN ×2 (13:53→20:46)
[2019-03-07 14:00] VITALS: BP 102/53
--- NOTE | 2019-03-07 15:15 | NUR ---
D/C Planning Per consult to resume service with [facility]. Per Dr. Chester patient does not want to go home under hospice and would like to resume service with [facility]. Contact [facility] Ph:) Fax:( [phone]) faxed medical records. Per Betsy from [facility] they will resume service for patient within 48hrs upon d/c day. Addendum: 03/07/19 at 1519 by SARY ONEAL Amended: Links added.
--- NOTE | 2019-03-07 15:30 | NUR ---
Patient sleeping at this time. Vital sign stable, will continue to monitor and care.
--- NOTE | 2019-03-07 16:55 | NUR ---
[facility] pt transferred to floor ALLA GRIFFIN transferred to 219B via hospital bed on cardiac technologist (Tele#[id number]) and portable 02. All patient medications and personal belongings transferred with patient to receiving floor. Patient care transferred to Norm CURIEL.
[2019-03-07 17:00] VITALS: BP 123/59
--- NOTE | 2019-03-07 17:02 | NUR ---
Void at this time around 300 ml.
--- NOTE | 2019-03-07 17:10 | NUR ---
[facility] pt transferred to floor ALLA GRIFFIN RECEIVED to RM 219B. Assumed care of patient, awake and alert. No S/S of distress/SOB or pain. Instructed on POC and to call for assist PRN, will continue to monitor for changes Q1hr and PRN
[2019-03-07] MEDS: PREGABALIN CAPSULE 75 MG CAP PO SCH (20:45)
[2019-03-07 22:00] VITALS: BP 113/63
--- NOTE | 2019-03-07 22:30 | NUR ---
RT NOTE PT PLACED ON HOSPITAL OWNED HOME CPAP UNIT RESPIRATORY #3 WITH MED NASAL MASK AND BEDSIDE POX AT THIS TIME ON STATED SETTINGS. CPAP AND POX ARE PLUGGED TO RED OUTLET. PT HAS A 3L O2 BLEED IN. PT TOLERATES WELL AT THIS TIME, VEENA VALLE AT BEDSIDE TO GIVE PT MEDS. WATER LEVEL IS FILLED TO FILL LINE AND HUMIDIFIER IS SET TO 3. CONT ORDERED. POX 96% Addendum: 03/07/19 at 2309 by Kaylee Marsh RT Amended: Links added.
--- NOTE | 2019-03-07 23:23 | NUR ---
PT HAD LARGE FORMED STOOL VIA BEDPAN;ALEXANDRE CARE AND NEW LINEN;PT NOW ON C-PAP AND TOLERATING WELL.
--- NOTE | 2019-03-08 00:25 | NUR ---
RT NOTE ROUTINE CPAP CHECK DONE ON HOSPITAL OWNED HOME CPAP UNIT RESPIRATORY #3 WITH MED NASAL MASK. PT IS ON BEDSIDE POX PER PROTOCOL. CPAP AND POX ARE PLUGGED TO RED OUTLET. PT HAS A 3L O2 BLEED IN. PT IS SLEEPING AND APPEARS TO TOLERATE WELL AT THIS TIME. WATER LEVEL IS ADEQUATE AND HUMIDIFIER IS SET TO 3. CONT ORDERED. POX 93% Addendum: 03/08/19 at 0035 by Kaylee Marsh RT Amended: Links added.
[2019-03-08] MEDS: ALPRAZolam 0.5 MG TAB PO PRN (00:36)
[2019-03-08 01:44] VITALS: BP 113/63
--- NOTE | 2019-03-08 02:25 | NUR ---
RT NOTE ROUTINE CPAP CHECK DONE ON HOSPITAL OWNED HOME CPAP UNIT RESPIRATORY #3 WITH MED NASAL MASK. PT IS ON BEDSIDE POX PER PROTOCOL. CPAP AND POX ARE PLUGGED TO RED OUTLET. PT HAS A 3L O2 BLEED IN. PT IS SLEEPING AND APPEARS TO TOLERATE WELL AT THIS TIME. WATER LEVEL IS ADEQUATE AND HUMIDIFIER IS SET TO 3. CONT ORDERED. POX 99% Addendum: 03/08/19 at 0251 by Kaylee Marsh RT Amended: Links added.
--- NOTE | 2019-03-08 04:10 | NUR ---
RT NOTE ROUTINE CPAP CHECK DONE ON HOSPITAL OWNED HOME CPAP UNIT RESPIRATORY #3 WITH MED NASAL MASK. PT IS ON BEDSIDE POX PER PROTOCOL. CPAP AND POX ARE PLUGGED TO RED OUTLET. PT HAS A 3L O2 BLEED IN. PT IS SLEEPING AND APPEARS TO TOLERATE WELL AT THIS TIME. WATER LEVEL IS ADEQUATE AND HUMIDIFIER IS SET TO 3. CONT ORDERED. POX 99% Addendum: 03/08/19 at 0428 by Kaylee Marsh RT Amended: Links added.
[2019-03-08 05:00] VITALS: BP 110/64
[2019-03-08] MEDS: LEVOTHYROXINE SODIUM 100 MCG TAB PO SCH (05:53)
--- NOTE | 2019-03-08 06:23 | NUR ---
DUE TO PT'S FREQUENCY IN URINATION;PT WAS TURNING SELF AND REPOSITIONING Q2 HOURS THROUGHOUT THE SHIFT. PT REQUIRES ASSISTANCE IN ALEXANDRE CARE BUT IS ABLE TO GET ON/OFF BEDPAN WITH MINIMAL ASSISTANCE. WILL CONTINUE TO MONITOR.
--- NOTE | 2019-03-08 07:30 | NUR ---
Opening Shift Note Assumed care of patient, awake and alert. No S/S of distress/SOB or pain. Instructed on POC and to call for assist PRN, will continue to monitor for changes Q1hr and PRN. Fall precautions in place per safety protocol.
--- NOTE | 2019-03-08 08:15 | NUR ---
Hospitalist at bedside MD Chester at bedside, aware of patient status. New orders for discharged discussed with patient. Will carry out new orders and will cont to monitor patient.
[2019-03-08 08:40] VITALS: BP 123/67
[2019-03-08] MEDS: PRIMIDONE 50 MG TAB PO SCH (10:39)
[2019-03-08] MEDS: POTASSIUM CHL 20 Meq TABLET PO SCH (10:40)
[2019-03-08] MEDS: PREGABALIN CAPSULE 75 MG CAP PO SCH (10:40)
[2019-03-08] MEDS: METOPROLOL SUCCINATE XL 50 MG TAB PO SCH (10:40)
[2019-03-08] MEDS: DIGOXIN 0.125 MG TAB PO SCH (10:40)
[2019-03-08] MEDS: AMIODARONE HCL 200 MG TAB PO SCH (10:41)
[2019-03-08] MEDS: APIXABAN 5 MG TAB PO SCH (10:41)
[2019-03-08 11:13] VITALS: BP 123/67
== END 2019-03-08 12:38 | disposition home health service (06) | DRG 190 ==
LOC: EDBD 17:30 → ER 17:30 → TELE 17:31 → DOU IN ICU 03-05 00:48 → TELE-CENTR 03-07 17:10
PROVIDERS: ADMIT Hospitalist; ATTEND Family Medicine
PROC: 5A09357 Assistance with Respiratory Ventilation, Less than 24 Consecutive Hours, Continuous Positive Airway Pressure (ICD-10-PCS; principal; 2019-03-05)
PROC: 5A09357 Assistance with Respiratory Ventilation, Less than 24 Consecutive Hours, Continuous Positive Airway Pressure (ICD-10-PCS; 2019-03-06)
PROC: 5A09357 Assistance with Respiratory Ventilation, Less than 24 Consecutive Hours, Continuous Positive Airway Pressure (ICD-10-PCS; 2019-03-07)
PROC: 5A09357 Assistance with Respiratory Ventilation, Less than 24 Consecutive Hours, Continuous Positive Airway Pressure (ICD-10-PCS; 2019-03-08)
DX: J44.1 Chronic obstructive pulmonary disease with (acute) exacerbation (principal); I50.43 Acute on chronic combined systolic (congestive) and diastolic (congestive) heart failure; S42.291A Other displaced fracture of upper end of right humerus, initial encounter for closed fracture; G90.511 Complex regional pain syndrome I of right upper limb; J96.10 Chronic respiratory failure, unspecified whether with hypoxia or hypercapnia; I11.0 Hypertensive heart disease with heart failure; I48.91 Unspecified atrial fibrillation; E03.9 Hypothyroidism, unspecified; X58.XXXA Exposure to other specified factors, initial encounter; F41.9 Anxiety disorder, unspecified; Z80.3 Family history of malignant neoplasm of breast; Z82.3 Family history of stroke; Z82.49 Family history of ischemic heart disease and other diseases of the circulatory system; Z87.440 Personal history of urinary (tract) infections; Z85.3 Personal history of malignant neoplasm of breast; Z95.0 Presence of cardiac pacemaker; Z99.81 Dependence on supplemental oxygen; Z91.041 Radiographic dye allergy status; Z79.899 Other long term (current) drug therapy; Z90.49 Acquired absence of other specified parts of digestive tract; Y93.89 Activity, other specified; Y92.89 Other specified places as the place of occurrence of the external cause; Y99.8 Other external cause status
CPT/HCPCS: 36415; 71045; 80048; 80053; 81001; 83735; 83880; 84484; 85007; 85025; 85027; 85610; 85730; 87081; 87086; 93005; 94660; 99291; G0378; J2405; J7060

== ENCOUNTER 2019-03-31 13:41 | Inpatient (IN) | payer MEDICARE, OTHER ==
[~2019-03-31] VITALS: Ht 152.4 cm; Wt 90.3 kg
[2019-03-31] MEDS ORDERED: SODIUM CHLORIDE 0.9% 1,000 ML IVB ONE (14:26)
[2019-03-31 14:59] LABS: INR 1.15 (0.9-1.15)
[2019-03-31 15:08] LABS: Albumin 3.6 g/dL (3.4-5.0); Calcium 9.7 mg/dL (8.5-10.1); Potassium 4.2 mmol/L (3.5-5.1)
[2019-03-31 15:12] LABS: BUN/Creatinine Ratio 36.5; Bilirubin, Total 0.7 mg/dL (0.2-1.0); Total Protein 7.6 g/dL (6.4-8.2)
[2019-03-31 15:22] LABS: Basophils # (auto) 0.1 uL; Basophils % (auto) 0.5 % (0.0-2.0); Eosinophils # (auto) 0.3 uL; Eosinophils % (auto) 2.2 % (0.0-7.0); Hematocrit 45.7 % (36.0-46.0); Lymphocytes # (auto) 1.4 uL; Mean Corpuscular Hemoglobin 30.1 pg (28.0-32.0); Mean Corpuscular Hgb Conc. 32.9 g/dL (32.0-36.0); Mean Corpuscular Volume 91.4 fL (80.0-100.0); Monocytes # (auto) 0.9 uL; Monocytes % (auto) 6.2 % (0.0-12.0); Neutrophils # (auto) 11.6 uL; Neutrophils % (auto) 81.1 % (37.0-80.0); Platelet Count (auto) 247 10^3/uL (140-450); Red Cell Distribution Width 14.5 % (11.8-14.3); White Blood Cell 14.3 10^3/uL (4.4-10.8)
[2019-03-31 18:32] LABS: Urine Bacteria FEW /hpf (None Seen); Urine Blood 2+ /uL (Negative); Urine Mucus FEW (None Seen); Urine Specific Gravity 1.021 (1.001-1.035); Urine WBC 34 /hpf (0 - 5)
[2019-03-31] MEDS ORDERED: cefTRIAXone 1GM/50ML D5W 50 ML IV ONE (19:00)
[2019-03-31] MEDS: SODIUM CHLORIDE 0.9% 1,000 ML IV SCH (19:19)
[2019-03-31] MEDS ORDERED: MORPHINE SULF INJ 2 MG/ML SYRINGE 1ML IV PRN (19:30)
[2019-03-31] MEDS ORDERED: HYDROcodone-ACET 5/325MG TAB PO PRN (19:30)
[2019-03-31] MEDS ORDERED: ACETAMINOPHEN 500 MG TAB PO PRN (19:30)
[2019-03-31] MEDS ORDERED: NITROGLYCERIN 0.4 MG SL TAB SL PRN (19:30)
[2019-03-31] MEDS ORDERED: ONDANSETRON HCL 4 MG/2 ML VIAL IV PRN (19:30)
--- NOTE | 2019-03-31 21:00 | NUR ---
Telemetry admit from ER ELIASALLA COBOS admitted to Telemetry unit. Patient oriented to TYLER ZAMAN RN primary RN, unit, room, bed, and unit policies regarding patient care and visiting hours. Patient now on continuous telemetry monitoring, tele box # 68 and telemetry reading on arrival to unit is sinus rhythm at 70 bpm. Patient placed on bedside oxygen, weighed by bed scale and encouraged to call if they need something. All questions and concerns addressed, patient verbalized understanding. Note: 16f Frazier catheter in place and draining toure red urine with sediment to gravity. Sample obtained and sent to lab. MRSA swab also collected and sent to lab. Wound photos taken and Optifoam dressing applied to sacrum.
[2019-03-31] MEDS: PREGABALIN CAPSULE 75 MG CAP PO SCH (21:43)
[2019-03-31] MEDS: PRIMIDONE 50 MG TAB PO SCH (21:45)
[2019-03-31] MEDS ORDERED: APIXABAN 5 MG TAB PO SCH (22:00)
[2019-03-31] MEDS ORDERED: APIXABAN 2.5 MG TAB PO SCH (22:00)
[2019-03-31 22:02] VITALS: BP 113/55
[2019-03-31] MEDS ORDERED: DIPH25CA66 PO (22:35)
[2019-03-31] MEDS ORDERED: DIGO0.12 PO (22:35)
[2019-03-31] MEDS: MORPHINE SULF INJ 2 MG/ML SYRINGE 1ML IV PRN (23:34)
[2019-04-01] MEDS: HYDROcodone-ACET 10/325MG TAB PO PRN ×3 (03:58→20:05)
[2019-04-01 05:02] VITALS: BP 132/60
[2019-04-01] MEDS: SODIUM CHLORIDE 0.9% 1,000 ML IV SCH (05:20)
[2019-04-01] MEDS: PRIMIDONE 50 MG TAB PO SCH ×3 (05:50→21:54)
[2019-04-01] MEDS: MORPHINE SULF INJ 2 MG/ML SYRINGE 1ML IV PRN (06:05)
[2019-04-01 06:24] LABS: Hemoglobin 13.5 g/dL (12.2-16.2); Mean Corpuscular Hemoglobin 30.2 pg (28.0-32.0); Mean Corpuscular Hgb Conc. 32.8 g/dL (32.0-36.0); Mean Corpuscular Volume 91.9 fL (80.0-100.0); Platelet Count (auto) 189 10^3/uL (140-450); Red Blood Cells 4.46 10^6/uL (4.0-5.20); Red Cell Distribution Width 14.7 % (11.8-14.3); White Blood Cell 13.6 10^3/uL (4.4-10.8)
[2019-04-01 06:28] LABS: BUN/Creatinine Ratio 46.9; Calcium 8.7 mg/dL (8.5-10.1); Potassium 3.6 mmol/L (3.5-5.1)
[2019-04-01 06:36] LABS: Basophils % (manual) 0 (0.0-2.0); Blast Cells 0; Metamyelocytes % 0; Myelocytes % 0; Promyelocytes % 0; Reactive Lymphocytes 0
[2019-04-01] MEDS ORDERED: OMEPRAZOLE 20MG/10ML ORAL SUSP PO SCH (07:00)
--- NOTE | 2019-04-01 07:30 | NUR ---
Opening Shift Note Assumed care of patient from shift manager RN, asleep but easily aroused, oriented x4. Reports 10/10 pain, denies SOB. Bed is locked and in lowest position and call light is within reach. Instructed on POC and to call for assist PRN, and patient verbalized understanding. Will continue to monitor for changes Q1hr and PRN.
[2019-04-01 08:00] VITALS: BP 149/86
[2019-04-01 08:08] LABS: Band Neutrophils % (manual) 1; Eosinophils % (manual) 4 (0-7); Lymphocytes % (manual) 8 (10.0-50.0); Monocytes % (manual) 7 (0-12)
[2019-04-01 09:00] VITALS: BP 126/68
[2019-04-01] MEDS: PHENAZOPYRIDINE HCL 100 MG TAB PO SCH ×3 (09:14→18:17)
--- NOTE | 2019-04-01 09:30 | NUR ---
WOUND CARE NOTE: SPECIALTY AIR MATTRESS ORDERED AT THIS TIME. PATIENT TO BE PLACED, PENDING DELIVERY BY [facility]D [facility]
[2019-04-01] MEDS ORDERED: AMIODARONE HCL 200 MG TAB PO SCH (10:00)
[2019-04-01] MEDS: DIGOXIN 0.125 MG TAB PO SCH (10:15)
[2019-04-01] MEDS: METOPROLOL TARTRATE 25 MG TAB PO SCH ×2 (10:19→21:30)
[2019-04-01] MEDS: FUROSEMIDE 40 MG TAB PO SCH (10:20)
[2019-04-01] MEDS: FAMOTIDINE 20 MG TAB PO SCH (10:21)
[2019-04-01] MEDS: PREGABALIN CAPSULE 75 MG CAP PO SCH ×2 (10:21→21:54)
[2019-04-01] MEDS: PANTOPRAZOLE 40 MG TAB PO SCH (10:22)
[2019-04-01] MEDS: LISINOPRIL 5 MG TAB PO SCH (10:22)
--- NOTE | 2019-04-01 11:00 | NUR ---
WOUND CARE NOTE: IN TO SEE PATIENT AT THIS TIME PER WOUND CARE CONSULT REQUEST. PATIENT ADMITTED TO [facility] WITH DIAGNOSIS OF ACUTE CYSTITIS. PATIENT NOTED TO HAVE WOUNDS UPON ADMIT. WOUND PHOTOS TAKEN AT THAT TIME FOR REFERENCE. SKIN/WOUND CARE PLAN IMPLEMENTED. PATIENT NOTED TO HAVE AN INTACT DTI TO THE LEFT SACRUM. PATIENT STATES THAT SHE HAS A FRACTURED RIGHT UPPER EXTREMITY, WITH LIMITED MOBILITY AT THIS TIME. SHE WAS WORKING WITH PHYSICAL THERAPY BUT NOTED THAT RECENTLY, SHE WAS UNABLE TO GET HER LEFT LEG TO WORK PROPERLY. SHE HAS BEEN BEDBOUND EVER SINCE. PATIENT HAS CURRENT MARCELL SCORE OF 12 ASSESSED AT THIS TIME. SHE IS MAX ASSIST FOR HER TURNING/REPOSITIONING. LEFT SACRUM HAS AN INTACT PURPLE DTI NOTED. SHE IS ALSO NOTED TO HAVE DARK RED WOUND TO THE LEFT ANKLE. 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 NO OPEN WOUNDS NOTED AT THIS TIME. PATIENT WOULD BENEFIT FROM THE FOLLOWING: FREQUENT TURN SCHEDULE Q 2 HOURS, PRN CONDITION PERMITS, WITH PRESSURE REDISTRIBUTION USING PILLOWS/WEDGES, SPECIALTY AIR MATTRESS, SKIN/WOUND CARE PLAN, DIETARY CONSULT, CONTINUED MONITORING BY WOUND CARE TEAM. Addendum: 04/01/19 at 1538 by Ava Harley RN Amended: Links added.
[2019-04-01] MEDS ORDERED: ERTAPENEM SOD INJ 1 GM in SODIUM CHL 0.9% 50 ML IV ONE (12:30)
[2019-04-01 13:00] VITALS: BP 128/60
--- NOTE | 2019-04-01 13:46 | NUR ---
Nutrition Assessment Notes Please refer to link for full assessment notes Est energy needs: 3350-7462 kcals (14-18 kcal/kgBW) Est protein needs: 65-81 gms/day (0.8-1.0 gm/kgBW) Will continue to monitor and reassess prn Addendum: 04/01/19 at [address] Amended: Links added.
[2019-04-01 17:00] VITALS: BP 99/53
--- NOTE | 2019-04-01 19:30 | NUR ---
Opening Shift Note Assumed care of patient from day shift RN. Patient is resting with eyes closed, respirations are even and non-labored. Easily aroused, oriented x4. Reports 8/10 pain, denies SOB. Bed is locked and in lowest position and call light is within reach. Instructed on POC and to call for assist PRN, and patient verbalized understanding. Will continue to monitor for changes Q1hr and PRN.
[2019-04-01] MEDS ORDERED: cefTRIAXone 1GM/50ML D5W 50 ML IV SCH (20:00)
--- NOTE | 2019-04-01 20:05 | NUR ---
PAIN Patient reports 8/10 suprapubic pain that "comes in waves". Patient requesting Morphine. Instructed that Morphine will not be administered due to blood pressure lowering effects and current BP of 99/49. Patient verbalizes understanding.
--- NOTE | 2019-04-01 20:40 | NUR ---
Hill-Rom air mattress delivered. Patient transferred onto bed with new mattress; tolerated well.
--- NOTE | 2019-04-01 21:52 | NUR ---
Blood pressure re-assessed Blood pressure reassessed and is 107/55, heart rate: 60
[2019-04-01 22:00] VITALS: BP 99/49
[2019-04-02 05:32] VITALS: BP 105/58
[2019-04-02] MEDS: PRIMIDONE 50 MG TAB PO SCH ×3 (05:49→22:07)
[2019-04-02] MEDS: LEVOTHYROXINE SODIUM 25 MCG TAB PO SCH (05:50)
--- NOTE | 2019-04-02 07:40 | NUR ---
Opening Shift Note Assumed care of patient from night club manager RN, asleep but easily aroused, oriented x4. Reports slight pain but refusing pain medication at this time. Denies SOB. Bed is locked and in lowest position and call light is within reach. Instructed on POC and to call for assist PRN, and patient verbalized understanding. Will continue to monitor for changes Q1hr and PRN.
[2019-04-02 09:00] VITALS: BP 115/56
[2019-04-02] MEDS: FAMOTIDINE 20 MG TAB PO SCH (10:54)
[2019-04-02] MEDS: PANTOPRAZOLE 40 MG TAB PO SCH (10:55)
[2019-04-02] MEDS: FUROSEMIDE 40 MG TAB PO SCH (10:56)
[2019-04-02] MEDS: METOPROLOL TARTRATE 25 MG TAB PO SCH ×2 (10:57→22:00)
[2019-04-02] MEDS: LISINOPRIL 5 MG TAB PO SCH (10:57)
[2019-04-02] MEDS: DIGOXIN 0.125 MG TAB PO SCH (10:57)
[2019-04-02] MEDS: PREGABALIN CAPSULE 75 MG CAP PO SCH ×2 (11:04→22:07)
--- NOTE | 2019-04-02 11:06 | NUR ---
Bill Recapitulation Clerk consult regarding resuming Home Health. Pt was previously on service with [facility] and will be resuming with this service upon discharge. [facility] contacted and information faxed to Linda. Information received and services to resume upon discharge. Will notify covering nurse and JOSE II of the above.
[2019-04-02] MEDS: ERTAPENEM SOD INJ 1 GM in SODIUM CHL 0.9% 50 ML IV SCH (11:31)
[2019-04-02 13:02] VITALS: BP 108/58
--- NOTE | 2019-04-02 15:15 | NUR ---
Assessment and SS consult Pt is an 83 yr old alert and oriented female. SS consult given for "[facility] was notified by EMS when the patient was picked up from her residence." Prior to admit, pt lives at home with her and 2 sons. Pt's has dementia and is on Hospice. Pt's daughter, Radha Mays, is her caregiver and emergency contact at [phone]. Pt's daughter helps, cook, clean and transport the pt. Pt stated that she is currently getting HH through [facility] and has a nursing aid, PT, OT. Pt would benefit from a resumption order for HH. Pt stated that she was admitted with bad UTI and lots of pain. Pt's Primary is Dr Armenta. If pt qualified, pt would benefit from SNF placement to do in center rehab. Pt stated that her was retired from the [employer] and fought in 2 wars. SW educated pt on the aid and attendance program. Pt was interested and agreed to be referred to Nitza who is an aid and attendance rep. Pt has POA on file. Pt stated that one of her son's can transport her home. Addendum: 04/02/19 at 1535 by DEVYN PLEITEZ Amended: Links added.
[2019-04-02 16:48] VITALS: BP 102/56
--- NOTE | 2019-04-02 19:30 | NUR ---
Opening Shift Note Assumed care of patient, awake and alert. No S/S of distress/SOB or pain. Instructed on POC and to call for assist PRN, will continue to monitor for changes Q1hr and PRN.
[2019-04-02 22:00] VITALS: BP 99/61
[2019-04-02] MEDS: HYDROcodone-ACET 10/325MG TAB PO PRN (22:06)
[2019-04-03] MEDS: HYDROcodone-ACET 10/325MG TAB PO PRN ×2 (04:00→20:22)
[2019-04-03 04:56] VITALS: BP 100/55
[2019-04-03] MEDS: PRIMIDONE 50 MG TAB PO SCH ×3 (06:13→21:54)
[2019-04-03] MEDS: LEVOTHYROXINE SODIUM 25 MCG TAB PO SCH (06:14)
--- NOTE | 2019-04-03 07:50 | NUR ---
PATIENT RECEIVED FROM TEMPERATURE INSPECTOR RN. AWAKE, ALERT AND ORIENTED X4. REPORTS 7/10 PAIN BUT DOES NOT WANT PAIN MEDICATION AT THIS TIME, DENIES SOB. FALL AND SAFETY PRECAUTION IN PLACE. CALL LIGHT WITHIN REACH AND PATIENT ABLE TO USE. PT INSTRUCTED ON PLAN OF CARE AND TO CALL FOR ASSISTANCE, PRN. WILL CONTINUE TO MONITOR FOR CHANGES Q1HR AND PRN.
[2019-04-03 08:49] VITALS: BP_SYST 101; BP_SYST 109; BP_DIAS 56; BP_DIAS 71
[2019-04-03] MEDS: ERTAPENEM SOD INJ 1 GM in SODIUM CHL 0.9% 50 ML IV SCH (10:47)
[2019-04-03] MEDS: FAMOTIDINE 20 MG TAB PO SCH (10:48)
[2019-04-03] MEDS: PREGABALIN CAPSULE 75 MG CAP PO SCH ×2 (10:49→21:54)
[2019-04-03] MEDS: DIGOXIN 0.125 MG TAB PO SCH (10:49)
[2019-04-03] MEDS: LISINOPRIL 5 MG TAB PO SCH (10:50)
[2019-04-03] MEDS: FUROSEMIDE 40 MG TAB PO SCH (10:50)
[2019-04-03] MEDS: METOPROLOL TARTRATE 25 MG TAB PO SCH ×2 (10:50→21:55)
[2019-04-03] MEDS: PANTOPRAZOLE 40 MG TAB PO SCH (10:51)
[2019-04-03 12:41] VITALS: BP 113/59
--- NOTE | 2019-04-03 19:30 | NUR ---
Opening Shift Note Assumed care of patient, awake and alert. No S/S of distress/SOB. Instructed on POC and to call for assist PRN, will continue to monitor for changes Q1hr and PRN.
--- NOTE | 2019-04-03 20:30 | NUR ---
Patient had a BM. Full linen change and bed bath performed. Changed optifoam dressing on sacrum. Patient tolerated well. Will continue to monitor.
[2019-04-03 22:00] VITALS: BP 92/50
[2019-04-04] MEDS: HYDROcodone-ACET 10/325MG TAB PO PRN ×3 (02:00→19:45)
[2019-04-04 05:38] VITALS: BP 95/50
[2019-04-04] MEDS: PRIMIDONE 50 MG TAB PO SCH ×3 (06:35→21:47)
[2019-04-04] MEDS: LEVOTHYROXINE SODIUM 25 MCG TAB PO SCH (06:35)
[2019-04-04 09:00] VITALS: BP 100/56
[2019-04-04] MEDS: LISINOPRIL 5 MG TAB PO SCH (10:00)
[2019-04-04] MEDS: METOPROLOL TARTRATE 25 MG TAB PO SCH ×2 (10:00→21:46)
[2019-04-04] MEDS: FUROSEMIDE 40 MG TAB PO SCH (10:09)
[2019-04-04] MEDS: PREGABALIN CAPSULE 75 MG CAP PO SCH ×2 (10:09→21:46)
[2019-04-04] MEDS: DIGOXIN 0.125 MG TAB PO SCH (10:09)
[2019-04-04] MEDS: FAMOTIDINE 20 MG TAB PO SCH (10:10)
[2019-04-04] MEDS: PANTOPRAZOLE 40 MG TAB PO SCH (10:10)
[2019-04-04] MEDS: ERTAPENEM SOD INJ 1 GM in SODIUM CHL 0.9% 50 ML IV SCH (10:11)
[2019-04-04] MEDS ORDERED: NITROFURANTOIN (MONO) 100 mg CAP PO ONE (11:00)
[2019-04-04 13:00] VITALS: BP 117/61
[2019-04-04] MEDS ORDERED: metroNIDAZOLE 500MG/100ML 100 ML IV SCH (14:00)
[2019-04-04 17:00] VITALS: BP 112/64
[2019-04-04] MEDS: HYDROCORTONE 1% TOPICAL CREAM 30 GM TUBE TOP SCH (21:14)
[2019-04-04] MEDS: NITROFURANTOIN (MONO) 100 mg CAP PO SCH (21:47)
[2019-04-04 22:00] VITALS: BP 112/62
[2019-04-05 05:00] VITALS: BP 125/71
[2019-04-05] MEDS: LEVOTHYROXINE SODIUM 25 MCG TAB PO SCH (06:42)
[2019-04-05] MEDS: PRIMIDONE 50 MG TAB PO SCH ×2 (06:42→14:35)
[2019-04-05] MEDS: HYDROcodone-ACET 10/325MG TAB PO PRN (06:44)
[2019-04-05 09:00] VITALS: BP 124/67
[2019-04-05] MEDS: HYDROCORTONE 1% TOPICAL CREAM 30 GM TUBE TOP SCH ×2 (10:00→13:34)
[2019-04-05] MEDS: LISINOPRIL 5 MG TAB PO SCH (10:00)
--- NOTE | 2019-04-05 10:04 | NUR ---
re-assessment Per consult dc planning or SNF for rehab. Patient is refusing SNF. Patient does not have any Medicare days for SNF. Patient wants to return home with home health. RN notified as well as Dr Armenta. Addendum: 04/06/19 at 1706 by Maggie Gacria Amended: Links added.
--- NOTE | 2019-04-05 10:18 | NUR ---
SPOKE TO PHARMACY REGARDING HYDROCORTISONE. JESSICA GUAMAN IN PHARMACY, STILL WAITING FOR SHIPMENT.
[2019-04-05] MEDS: FUROSEMIDE 40 MG TAB PO SCH (10:43)
[2019-04-05] MEDS: DIGOXIN 0.125 MG TAB PO SCH (10:43)
[2019-04-05] MEDS: ERTAPENEM SOD INJ 1 GM in SODIUM CHL 0.9% 50 ML IV SCH (10:43)
[2019-04-05] MEDS: METOPROLOL TARTRATE 25 MG TAB PO SCH (10:44)
[2019-04-05] MEDS: NITROFURANTOIN (MONO) 100 mg CAP PO SCH (10:44)
[2019-04-05] MEDS: FAMOTIDINE 20 MG TAB PO SCH (10:44)
[2019-04-05] MEDS: PREGABALIN CAPSULE 75 MG CAP PO SCH (10:44)
[2019-04-05] MEDS: PANTOPRAZOLE 40 MG TAB PO SCH (10:45)
--- NOTE | 2019-04-05 11:44 | NUR ---
PER Adan MENDOZA BUSCH CATHETER WILL STAY IN PLACE.
--- NOTE | 2019-04-05 12:49 | NUR ---
Discharge planning per consult, patient has orders to resume home health. Patient was on services with [facility] [phone]. Referral sent, placed a follow up call, spoke with Mecca and was advised that patient is okay to resume services and she will follow up tomorrow to ensure patient has discharge so they can resume care. Addendum: 04/05/19 at 1253 by NUHA MOHR Amended: Links added.
[2019-04-05 13:00] VITALS: BP 114/56
--- NOTE | 2019-04-05 16:00 | NUR ---
wound photos taken.
--- NOTE | 2019-04-05 16:43 | NUR ---
Discharge instructions given as ordered. Encourage to follow up with PMD as instructed. All questions and concerns addressed. INSTRUCTED TO CALL for urology follow up. Provided with follow up to pcp. Briseno in place per m.d. request. Patient verbalized understanding. Home medications held in Pharmacy returned to patient IV removed with catheter intact, pressure dressing applied, briseno catheter removed. Telemetry unit returned to ICU. Patient taken to vehicle via wheelchair with all personal belongings, accompanied by staff and family member. No distress noted at time of departure.
== END 2019-04-05 16:43 | disposition home health service (06) | DRG 872 ==
LOC: EDBD 13:41 → EDUNIT# 13:41 → ER 13:44 → TELE-WESTW 13:45
PROVIDERS: ADMIT Nurse Practitioner Acute Care; ATTEND Internal Medicine
DX: A41.9 Sepsis, unspecified organism (principal); N30.01 Acute cystitis with hematuria; D68.59 Other primary thrombophilia; R94.6 Abnormal results of thyroid function studies; K57.30 Diverticulosis of large intestine without perforation or abscess without bleeding; G89.29 Other chronic pain; J44.9 Chronic obstructive pulmonary disease, unspecified; M25.511 Pain in right shoulder; R62.7 Adult failure to thrive; I48.0 Paroxysmal atrial fibrillation; E03.9 Hypothyroidism, unspecified; I10 Essential (primary) hypertension; E66.9 Obesity, unspecified; E86.0 Dehydration; Z74.01 Bed confinement status; Z68.38 Body mass index [BMI] 38.0-38.9, adult; Z88.8 Allergy status to other drugs, medicaments and biological substances; Z91.041 Radiographic dye allergy status; Z91.040 Latex allergy status; E07.9 Disorder of thyroid, unspecified; Z79.01 Long term (current) use of anticoagulants; Z80.3 Family history of malignant neoplasm of breast; Z82.3 Family history of stroke; Z82.49 Family history of ischemic heart disease and other diseases of the circulatory system; Z90.49 Acquired absence of other specified parts of digestive tract
CPT/HCPCS: 36415; 51702; 71045; 74176; 80048; 80053; 81001; 83735; 84443; 85007; 85025; 85027; 85610; 85730; 87081; 87086; 96365; 97110; 97530; G0378; J0696; J1335

== ENCOUNTER 2019-05-29 13:22 | Inpatient (IN) | payer MEDICARE, OTHER ==
[~2019-05-29] VITALS: Ht 152.4 cm; Wt 95.0 kg
[~2019-05-29 13:22] MED LIST changes: +DIGO0.12 PO; +DIPH25CA66 PO
[2019-05-29] MEDS ORDERED: SODIUM CHLORIDE 0.9% 1,000 ML IV ONE (13:28)
[2019-05-29] MEDS ORDERED: IPRATROPIUM BROM 0.5 MG/2.5ML INH SOL HHN ONE (13:30)
[2019-05-29] MEDS ORDERED: ALBUTEROL SULF 2.5 MG/0.5ML(0.5%) NEB SOLN HHN ONE (13:30)
[2019-05-29 13:43] LABS: Hematocrit 40.3 % (36.0-46.0); Mean Corpuscular Hemoglobin 29.6 pg (28.0-32.0); Mean Corpuscular Hgb Conc. 32.2 g/dL (32.0-36.0); Mean Corpuscular Volume 92.1 fL (80.0-100.0); Platelet Count (auto) 240 10^3/uL (140-450); Red Blood Cells 4.37 10^6/uL (4.0-5.20); Red Cell Distribution Width 14.9 % (11.8-14.3)
[2019-05-29 13:51] LABS: Band Neutrophils % (manual) 0; Basophils % (manual) 0 (0.0-2.0); Blast Cells 0; Metamyelocytes % 0; Myelocytes % 0; Promyelocytes % 0; Reactive Lymphocytes 0
[2019-05-29 14:00] LABS: Albumin 2.8 g/dL (3.4-5.0); Calcium 8.9 mg/dL (8.5-10.1); Potassium 4.9 mmol/L (3.5-5.1)
[2019-05-29 14:06] LABS: BUN/Creatinine Ratio 33.3
[2019-05-29 14:07] LABS: Bilirubin, Total 0.5 mg/dL (0.2-1.0)
[2019-05-29 14:24] LABS: Eosinophils % (manual) 1 (0-7); Lymphocytes % (manual) 17 (10.0-50.0); Monocytes % (manual) 7 (0-12)
[2019-05-29 16:55] LABS: Urine Bacteria MANY /hpf (None Seen); Urine Blood 2+ /uL (Negative); Urine Mucus FEW (None Seen); Urine Specific Gravity 1.016 (1.001-1.035); Urine WBC 139 /hpf (0 - 5)
[2019-05-29] MEDS ORDERED: SODIUM CHLORIDE 0.9% 500 ML IV ONE (18:30)
[2019-05-29] MEDS ORDERED: cefTRIAXone 1GM/50ML D5W 50 ML IV SCH (18:30)
[2019-05-29] MEDS ORDERED: ONDANSETRON HCL 4 MG/2 ML VIAL IV PRN (18:30)
[2019-05-29] MEDS ORDERED: ACETAMINOPHEN 500 MG TAB PO PRN (18:30)
[2019-05-29] MEDS ORDERED: MORPHINE SULF INJ 2 MG/ML SYRINGE 1ML IV PRN ×2 (18:30)
[2019-05-29] MEDS ORDERED: NITROGLYCERIN 0.4 MG SL TAB SL PRN (18:30)
[2019-05-29] MEDS: levoFLOXacin 500MG 100 ML IV SCH (18:53)
[2019-05-29 19:48] LABS: Amphetamine Screen, Urine NEGATIVE (NEGATIVE); Barbiturate Scree,Urine POSITIVE (NEGATIVE); Benzodiazephine Screen, Urine NEGATIVE (NEGATIVE); Cannabinoid Screen, Urine NEGATIVE (NEGATIVE); Cocaine Screen, Urine NEGATIVE (NEGATIVE); Opiate Scree,Urine NEGATIVE (NEGATIVE); Phencyclidine Screen, Urine NEGATIVE (NEGATIVE)
--- NOTE | 2019-05-29 20:18 | NUR ---
REPORT Received report from PROJECT ACCOUNTANTVEENA Simon
--- NOTE | 2019-05-29 20:26 | NUR ---
Telemetry admit from ER ALLA GRIFFIN admitted to Telemetry unit. Patient oriented to Shelly Cross RN primary RN, unit, room, bed, and unit policies regarding patient care and visiting hours. Patient now on continuous telemetry monitoring, tele box #1 and telemetry reading on arrival to unit is paced. Patient placed on bedside oxygen via mask at 4L, weighed by bedscale and encouraged to call if they need something. All questions and concerns addressed, patient verbalized understanding. Secondary RN to call daughter for admission questions. Fall and safety precautions in place. Call light within reach.
--- NOTE | 2019-05-29 21:12 | NUR ---
RAPID INFLUENZA/MRSA Rapid influenza and MRSA swab obtained of nares and sent to lab via bullet
[2019-05-29 21:14] VITALS: BP 99/57
[2019-05-29 22:00] VITALS: BP 99/57
--- NOTE | 2019-05-29 22:00 | NUR ---
HOSPITALIST Paged on-call hospitalist regarding CPAP order. Awaiting call back
--- NOTE | 2019-05-29 22:45 | NUR ---
HOSPITALIST Received call back from hospitalist on-call, Warner Phillips NP. New orders received, read back and verified. Will input and carry out.
--- NOTE | 2019-05-29 22:50 | NUR ---
RESPIRATORY Called and spoke with Bryson BARTH, informed him of CPAP order. Bryson stated will be in patient room shortly for CPAP
[2019-05-29] MEDS: PREGABALIN CAPSULE 75 MG CAP PO SCH (22:53)
[2019-05-29] MEDS: APIXABAN 5 MG TAB PO SCH (22:53)
[2019-05-29] MEDS: CLINDAMYCIN 300MG IV 50 ML IV SCH (22:53)
[2019-05-29] MEDS: PRIMIDONE 50 MG TAB PO SCH (22:53)
--- NOTE | 2019-05-29 23:00 | NUR ---
WOUND Wound pictures taken of patient's buttocks. Patient cleaned and repositioned for comfort, tolerated well. Will continue to monitor
[2019-05-29] MEDS ORDERED: ALBUTEROL SULF 2.5 MG/0.5ML(0.5%) NEB SOLN ONE (23:49)
[2019-05-29] MEDS ORDERED: IPRATROPIUM BROM 0.5 MG/2.5ML INH SOL ONE (23:49)
[2019-05-30 02:35] VITALS: BP 99/57
[2019-05-30 05:00] VITALS: BP 100/57
[2019-05-30] MEDS: CLINDAMYCIN 300MG IV 50 ML IV SCH (06:00)
[2019-05-30] MEDS: PRIMIDONE 50 MG TAB PO SCH ×3 (06:00→20:34)
--- NOTE | 2019-05-30 07:30 | NUR ---
Opening Shift Note Assumed care of patient, awake and alert. No S/S of distress/SOB. Pt denies having any pain at this time. Bed in lowest and locked position with side rails upx2 and call light within reach. Instructed on POC and to call for assist PRN, will continue to monitor for changes Q1hr and PRN.
[2019-05-30] MEDS: IPRATROPIUM BROM 0.5 MG/2.5ML INH SOL NEB SCH ×3 (08:37→19:31)
[2019-05-30] MEDS: ALBUTEROL SULF 2.5 MG/0.5ML(0.5%) NEB SOLN NEB SCH ×3 (08:37→19:30)
[2019-05-30 09:00] VITALS: BP 112/72
[2019-05-30 09:35] LABS: Hematocrit 35.3 % (36.0-46.0); Hemoglobin 11.4 g/dL (12.2-16.2); Mean Corpuscular Hemoglobin 29.6 pg (28.0-32.0); Mean Corpuscular Hgb Conc. 32.3 g/dL (32.0-36.0); Mean Corpuscular Volume 91.8 fL (80.0-100.0); Platelet Count (auto) 187 10^3/uL (140-450); Red Blood Cells 3.85 10^6/uL (4.0-5.20); Red Cell Distribution Width 14.5 % (11.8-14.3); White Blood Cell 17.8 10^3/uL (4.4-10.8)
[2019-05-30 09:39] LABS: Basophils % (manual) 0 (0.0-2.0); Blast Cells 0; Metamyelocytes % 0; Myelocytes % 0; Promyelocytes % 0; Reactive Lymphocytes 0
[2019-05-30 09:53] LABS: BUN/Creatinine Ratio 40.3; Calcium 8.4 mg/dL (8.5-10.1); Potassium 3.8 mmol/L (3.5-5.1)
[2019-05-30] MEDS: LISINOPRIL 5 MG TAB PO SCH (10:00)
--- NOTE | 2019-05-30 10:35 | NUR ---
WOUND CARE NOTE: Wound care into see patient per wound care request regarding skin integrity issue that are noted present on admission. Bedside nurse took photograph of patient's skin issue upon discovery for reference. Patient is 83 years old female with admitting diagnosis of Sepsis. Patient with history of Frequent UTI's, COPD, CHF. Patient is resting in bed in Rm. 248A. Patient is awake, alert and able to verbalize needs. Patient is in no stated pain at this time and she appears to be in no pain using Staley Simmons Faces Pain Scale. Weber need assistance in turning and repositioning. Her Luis score is 13. Patient is incontinent and just had bowel movement. Nurse occupational therapist's assistant bedside cleaning patient. Noted erythema with skin erosion in patient's bilateral gluteal and inner thighs consistent with Moisture associated skin damage. Patient is receiving BID/PRN cleaning and application of Barrier cream to sacral, buttocks and perineum per MD order. Patient also noted with intact serum filled blister to her Rt medial thigh. Intact pink collagens car tissue also noted to her Rt ankle, area is clean and dry, left open to air. Patient tolerated well, repositioned for comfort. Bed in low position with all safety precautions in placed. Nurse occupational therapist's assistant at bedside. RECOMMENDATION: Nursing to continue with BID/PRN cleaning and application Barrier cream to sacral, buttocks and perineum per MD order, frequent turning and repositioning schedule as condition permits, redistribute pressure points with pillows, elevate heels on pillows, frequent blanca check/care, keep clean and dry, continue monitoring by wound care while patient is hospitalized. Addendum: 05/30/19 at 1219 by Drea Doe RN Amended: Links added.
[2019-05-30 10:54] LABS: Band Neutrophils % (manual) 1; Eosinophils % (manual) 2 (0-7); Lymphocytes % (manual) 11 (10.0-50.0); Monocytes % (manual) 5 (0-12)
[2019-05-30] MEDS: levoFLOXacin 500MG 100 ML IV SCH (11:06)
[2019-05-30] MEDS: PREGABALIN CAPSULE 75 MG CAP PO SCH ×2 (11:06→20:34)
[2019-05-30] MEDS: FAMOTIDINE 20 MG TAB PO SCH (11:07)
[2019-05-30] MEDS: APIXABAN 5 MG TAB PO SCH ×2 (11:07→20:34)
[2019-05-30] MEDS: AMIODARONE HCL 200 MG TAB PO SCH (11:08)
--- NOTE | 2019-05-30 11:37 | NUR ---
SPOKE TO DR. MENDOZA. NEW ORDERS RECEIVED, READ BACK AND VERIFIED. SEE EMR FOR ORDERS.
--- NOTE | 2019-05-30 12:00 | NUR ---
SPOKE TO DR. MENDOZA. RN NOTIFIED MD OF THE PATIENTS BLOOD PRESSURE. MD AWARE. NO NEW ORDERS RECEIVED AT THIS TIME.
[2019-05-30] MEDS ORDERED: DOXYCYCLINE 100MG/250ML 250 ML IV SCH (12:45)
--- NOTE | 2019-05-30 12:55 | NUR ---
PAGED DR. MENDOZA. AWAITING CALL BACK.
[2019-05-30 13:00] VITALS: BP 90/45
--- NOTE | 2019-05-30 14:00 | NUR ---
SPOKE TO DR. MENDOZA. RN NOTIFIED MD THAT THE PATIENT HAD A RUN OF VTACH AND THE BLOOD CULTURE RESULTS. NEW ORDERS RECEIVED, READ BACK AND VERIFIED.
[2019-05-30] MEDS: ERTAPENEM SOD INJ 1 GM in SODIUM CHL 0.9% 50 ML IV SCH (14:18)
[2019-05-30] MEDS ORDERED: VANCOMYCIN PER PHARMACY 0 MG IV SCH (15:00)
[2019-05-30] MEDS: VANCOMYCIN 1GM/250ML 250 ML IV SCH (16:29)
[2019-05-30 16:34] VITALS: BP 92/53
[2019-05-30 22:00] VITALS: BP 99/51
[2019-05-31 06:00] VITALS: BP 113/62
[2019-05-31] MEDS: PRIMIDONE 50 MG TAB PO SCH ×3 (06:13→22:11)
[2019-05-31 06:45] LABS: Hematocrit 35.3 % (36.0-46.0); Hemoglobin 11.6 g/dL (12.2-16.2); Mean Corpuscular Hemoglobin 30.1 pg (28.0-32.0); Mean Corpuscular Hgb Conc. 32.7 g/dL (32.0-36.0); Platelet Count (auto) 182 10^3/uL (140-450); Red Blood Cells 3.84 10^6/uL (4.0-5.20); Red Cell Distribution Width 14.5 % (11.8-14.3); White Blood Cell 11.7 10^3/uL (4.4-10.8)
[2019-05-31 06:56] LABS: Magnesium 2.2 mg/dL (1.6-2.6); Potassium 3.7 mmol/L (3.5-5.1)
[2019-05-31] MEDS: ALBUTEROL SULF 2.5 MG/0.5ML(0.5%) NEB SOLN NEB SCH ×3 (07:04→19:31)
[2019-05-31] MEDS: IPRATROPIUM BROM 0.5 MG/2.5ML INH SOL NEB SCH ×3 (07:04→19:31)
[2019-05-31 07:47] LABS: Basophils % (manual) 0 (0.0-2.0); Blast Cells 0; Metamyelocytes % 0; Myelocytes % 0; Promyelocytes % 0; Reactive Lymphocytes 0
[2019-05-31 07:53] LABS: Band Neutrophils % (manual) 2; Eosinophils % (manual) 3 (0-7); Lymphocytes % (manual) 13 (10.0-50.0); Monocytes % (manual) 6 (0-12)
[2019-05-31 09:11] VITALS: BP 104/51
[2019-05-31] MEDS: AMIODARONE HCL 200 MG TAB PO SCH (09:49)
[2019-05-31] MEDS: ERTAPENEM SOD INJ 1 GM in SODIUM CHL 0.9% 50 ML IV SCH (09:49)
[2019-05-31] MEDS: FAMOTIDINE 20 MG TAB PO SCH (09:50)
[2019-05-31] MEDS: APIXABAN 5 MG TAB PO SCH ×2 (09:50→22:10)
[2019-05-31] MEDS: PREGABALIN CAPSULE 75 MG CAP PO SCH ×2 (09:50→22:11)
[2019-05-31] MEDS: LISINOPRIL 5 MG TAB PO SCH (10:00)
[2019-05-31] MEDS ORDERED: ERTAPENEM SOD INJ 1 GM in SODIUM CHL 0.9% 50 ML IV SCH (10:00)
[2019-05-31] MEDS: VANCOMYCIN 1GM/250ML 250 ML IV SCH (10:16)
--- NOTE | 2019-05-31 11:30 | NUR ---
SPOKE TO DR. MENDOZA. NEW ORDERS RECEIVED, READ BACK AND VERIFIED. SEE EMR FOR ORDERS.
--- NOTE | 2019-05-31 12:16 | NUR ---
AIR MATTRESS: Air mattress ordered at [facility],Reference # [id number]; ETA 05/02/19 @1813, Call [facility] if need to follow up at [phone]
[2019-05-31 13:00] VITALS: BP 93/43
--- NOTE | 2019-05-31 13:39 | NUR ---
Nutrition Assessment Notes Please refer to link for full assessment notes. Est energy needs: 2635-0129 kcals (14-18 kcal/kgBW) Est protein needs: 68-85 gms/day (1.2-1.5 gm/kgBW) d/t age and P/U Will continue to monitor and reassess prn. Addendum: 05/31/19 at [address] Amended: Links added.
[2019-05-31 16:24] VITALS: BP 98/54
--- NOTE | 2019-05-31 19:15 | NUR ---
Received report from the Day RN Linda. initial assessment done. Pt. alert, awake, oriented x 4, @ 2-3 L/NC, i\on bedrest only, No s/s of RR distress, breathing symmetrical, lungs sound diminished, continuous pulse ox @ the bedside attached to the Right index Finger with 02 sat. of 96 %-97 %. Pt. denies chest pain and denies pain except the Right Arm fracture when move suddenly, pt. feel the pain but tolerable pain @ the Right Arm when moved. At this time, pt. is relaxed and pain free. Pt. is APaced @ the monitor @ 60 ml./hr. Pt. provided assistance @ the bedside with the activities of daily living and hygiene, feeding and toileting needs. Turned pt. to the sides slightly and keep HOB UP @ 35 degrees Angle. Pt. with PIV access @ the Left Wrist G # 20 -SL for antibiotics only then HL after. Pt. resting and keep clean, dry and clinical researcher bed.
--- NOTE | 2019-05-31 20:00 | NUR ---
Assessment done and completed. Pt. able to express needs and is coherent and able to follow simple commands. No s/s of pain or discomfort. A-Paced @ the monitor @ the 60's Per minute.
--- NOTE | 2019-05-31 22:10 | NUR ---
Meds. as scheduled given/administered @ around this time. Pt. able to swallow medications slowly. Coherent and follows command.
[2019-05-31 22:30] VITALS: BP 101/57
--- NOTE | 2019-06-01 | NUR ---
Pt. on BIPAP continuous Per RT Protocol.
--- NOTE | 2019-06-01 00:10 | NUR ---
Pt. sleeping undisturbed. Turned to the sides slightly and maintained a quiet, safe environment and keep lights off to facilitate sleep and rest.
--- NOTE | 2019-06-01 02:00 | NUR ---
Pt. sleeping and quiet. Turned to the sides with pillows supporting back with the help of the DIRECTOR SMB SALES.
--- NOTE | 2019-06-01 04:00 | NUR ---
Pt. on BIPAP continuous Per RT Protocol @ night.
[2019-06-01] MEDS: VANCOMYCIN 1GM/250ML 250 ML IV SCH ×2 (04:55→22:05)
--- NOTE | 2019-06-01 04:55 | NUR ---
Antibiotic Vancomycin 1 GM given IV @ around this time. Pt. provided complete bedbath with the help of the ADVANCED MANAGER. Washed and cleansed pt. in bed. Changed all bed linens, bed sheet, chux and pillow cases. Siderails up x 2-3 for safety. HOB up @ 35 Degrees Angle.
[2019-06-01 05:30] VITALS: BP 108/56
--- NOTE | 2019-06-01 06:00 | NUR ---
Pt. still on BIPAP, resting and sleeping with BIPAP on. Pt. easily arousable and is compliant with care.
[2019-06-01 06:36] LABS: Hematocrit 35.8 % (36.0-46.0); Hemoglobin 11.5 g/dL (12.2-16.2); Mean Corpuscular Hemoglobin 29.7 pg (28.0-32.0); Mean Corpuscular Hgb Conc. 32.1 g/dL (32.0-36.0); Mean Corpuscular Volume 92.5 fL (80.0-100.0); Platelet Count (auto) 177 10^3/uL (140-450); Red Blood Cells 3.88 10^6/uL (4.0-5.20); White Blood Cell 13.2 10^3/uL (4.4-10.8)
[2019-06-01 06:51] LABS: Basophils % (manual) 0 (0.0-2.0); Blast Cells 0; Metamyelocytes % 0; Myelocytes % 0; Promyelocytes % 0; Reactive Lymphocytes 0
[2019-06-01] MEDS: PRIMIDONE 50 MG TAB PO SCH ×3 (07:08→22:06)
[2019-06-01] MEDS: ALBUTEROL SULF 2.5 MG/0.5ML(0.5%) NEB SOLN NEB SCH ×3 (07:08→19:41)
[2019-06-01] MEDS: IPRATROPIUM BROM 0.5 MG/2.5ML INH SOL NEB SCH ×3 (07:08→19:41)
[2019-06-01 07:11] LABS: Calcium 8.8 mg/dL (8.5-10.1); Magnesium 2.3 mg/dL (1.6-2.6)
[2019-06-01 07:24] LABS: Band Neutrophils % (manual) 1; Eosinophils % (manual) 2 (0-7); Lymphocytes % (manual) 13 (10.0-50.0); Monocytes % (manual) 7 (0-12)
--- NOTE | 2019-06-01 07:40 | NUR ---
Patient asleep, on BIPAP. No acute distress noted. O2 Sat = 93%, Heart rate = 61.
--- NOTE | 2019-06-01 08:55 | NUR ---
Patient asked to be off from BIPAP, requested to be on O2 via nasal cannula at 2 LPM. O2 Sat = 96% on O2 at 2 LPM via nasal cannula, Heart rate = 76.
[2019-06-01 09:00] VITALS: BP 117/69
--- NOTE | 2019-06-01 09:00 | NUR ---
Assisted the patient with bedpan.
--- NOTE | 2019-06-01 09:10 | NUR ---
Patient stated she's not ready to go home today.
--- NOTE | 2019-06-01 09:10 | NUR ---
Large, soft, brown stools noted on the bedpan. Cleaned the patient.
--- NOTE | 2019-06-01 09:20 | NUR ---
Photos taken of the sacral, right upper leg, bilateral feet, left abdominal fold. Wound Care forms placed on the Wound care tray. Camera returned to [facility].
--- NOTE | 2019-06-01 10:28 | NUR ---
Daughter Radha ([phone]) called. Radha said she wants to talk to the Junior Legal Secretary and the doctor first before patient is discharge. Radha wants to discuss the patient's option either for home health, hospice or rehab.
--- NOTE | 2019-06-01 10:35 | NUR ---
Patient asked for Levothyroxine. Explained to patient there's no order for Levothyroxine. Will inform the MD.
[2019-06-01] MEDS: PREGABALIN CAPSULE 75 MG CAP PO SCH ×2 (10:36→22:06)
[2019-06-01] MEDS: ERTAPENEM SOD INJ 1 GM in SODIUM CHL 0.9% 50 ML IV SCH (10:36)
[2019-06-01] MEDS: LISINOPRIL 5 MG TAB PO SCH (10:37)
[2019-06-01] MEDS: APIXABAN 5 MG TAB PO SCH ×2 (10:37→22:05)
[2019-06-01] MEDS: FAMOTIDINE 20 MG TAB PO SCH (10:37)
[2019-06-01] MEDS: AMIODARONE HCL 200 MG TAB PO SCH (10:38)
--- NOTE | 2019-06-01 10:47 | NUR ---
Assisted the patient to dial daughter Radha's phone # [phone] using the bedside phone. Patient talking to her daughter on the phone.
--- NOTE | 2019-06-01 11:38 | NUR ---
assessment Patient is a 83 year old female who is alert and oriented. Per patient prior to admission patient resided with family. Per patient she will return home with on discharge. Patient informed me she is on service with [facility] prior to admission and will not resume on discharge. Patient was to continue with [facility] who she was on with prior to hospice. Patient has a wheelchair and home 02 for home use. Patients PCP is Dr Armenta. Patient has an advanced directive and her POA is her daughter Radha Mays. Patient verbalized understanding and agreed to discharge plan home. Addendum: 06/01/19 at 1140 by Maggie VILLA Amended: Links added.
--- NOTE | 2019-06-01 12:06 | NUR ---
O2 Sat = 96% on O2 at 2 LPM, Heart rate = 61.
[2019-06-01 13:00] VITALS: BP 102/54
--- NOTE | 2019-06-01 13:28 | NUR ---
Dr. Armenta at bedside. Patient requested for eye drops and her Levothyroxine. Dr. Armenta ordered eye drops and Levothyroxine. MD made aware patient's daughter wants to talk to him and the [facility] regarding home health, rehab and hospice.
--- NOTE | 2019-06-01 13:29 | NUR ---
Dr. Armenta said to call the daughter if she can come over to discuss the home health, rehab or hospice.
--- NOTE | 2019-06-01 13:30 | NUR ---
Called patient's daughter Radha. Phone on [employer]eting[employer]. Left a message to call back.
[2019-06-01] MEDS: HYDROcodone-ACET 5/325MG TAB PO PRN (15:34)
--- NOTE | 2019-06-01 15:34 | NUR ---
[place] 5/325 PO given for generalized body pain.
[2019-06-01 17:00] VITALS: BP 99/51
--- NOTE | 2019-06-01 19:00 | NUR ---
Received report from the Day RN. Richey. Initial assessment done. Pt. in bed resting, on 2L/NC continuous, lungs are diminished to clear, breathing symmetrical unlabored, sob upon exertion, no s/s of sob @ this time, pt. on total bedrest with HOB up @ 35-55 Degrees Angle. No s/s of pain or denies pain @ this time. on Tele # 1 Apaced HR = 60/minute @ the monitor. Keep pt. safe and inspection supervisor bed. Call-light @ the bedside.
--- NOTE | 2019-06-01 20:00 | NUR ---
Assessment done and completed. Pt. @ 2L/NC continuous. No s/s of sob, diminished lung sounds, denies chest pain, Apaced @ the monitor @ the 60's per minute. Pt. resting, scooted HOB up, turned to the right side lying slightly with pillow supporting back, and head @ 35 degrees angle. Pt. for BIPAP anytime tonight once the pt. will request for it, well call the RT anytime. Keep pt. clean and music minister bed. Call-light @ the bedside.
--- NOTE | 2019-06-01 22:00 | NUR ---
Pt.'s daughter called and wants to know how's pt.'s doing. Radha. pt.'s daughter wants to say hi and love to her mother Radha Franco. Pt. was informed about her daughter Radha wants to say hi and loved her. Pt. made aware that her daughter taking care of her Dad.
--- NOTE | 2019-06-01 22:05 | NUR ---
Meds. as scheduled given/administered @ around this time. Pt. provided simple explanation or health teaching about the mechanism or use of the meds. as given @ this time. Pt. verbalized understanding.
[2019-06-01] MEDS: ARTIFICIAL TEARS 15ml EACHEYE PRN (22:19)
--- NOTE | 2019-06-01 22:19 | NUR ---
Pt. given eye drops of "tears Naturale" for dry eyes " given 1 gtt each eye @ 2219 PM. Pt. feels good, the eye drop given to her.
[2019-06-01 23:00] VITALS: BP 110/60
[2019-06-01 23:38] VITALS: BP 110/60
--- NOTE | 2019-06-01 23:50 | NUR ---
Pt. requested for BIPAP to start @ this time. Called/paged RT to come up and start the BIPAP.
--- NOTE | 2019-06-02 | NUR ---
RT @ the bedside, RN communicated with the RT about pt.'s wants her BIPAP when she sleep. RT aware and will start the BIPAP @ around this time. Pt. IV access checked and reenforced clear dsg. No s/s of leaking.
--- NOTE | 2019-06-02 00:05 | NUR ---
Pt. on BIPAP @ 36 % with 02 sat. of 96 % . Pt. started to sleep and keep clean, dry, warm and comfortable in bed. No s/s of acute changes. Still A-paced @ the 60's per minute @ the monitor. No s/s of pain or discomfort.
[2019-06-02 01:08] VITALS: BP 110/60
--- NOTE | 2019-06-02 04:00 | NUR ---
Pt. sleeping undisturbed. Turned/repositioned to the sides, scooted HOB up @ 35 degrees angle. Maintained pt.safety by frequent roundings and monitoring pt. comfort level. A-paced @ the monitor.
[2019-06-02 05:55] VITALS: BP 120/66
[2019-06-02] MEDS: VANCOMYCIN 1GM/250ML 250 ML IV SCH ×2 (06:03→15:47)
--- NOTE | 2019-06-02 06:03 | NUR ---
Due meds. as scheduled for 5190-5644 am given to pt. Pt. made aware of the use/benefits of these am meds. Pt. verbalized understanding. Pt. is now changed from BIPAP 36 % to 2L/NC @ around 0600 Am by the RT. Pt. still A-paced @ 60's per minute @ the monitor. Pt. HOB UP @ 35-45 degrees angle, able to swallow the meds. slowly without difficulty and pt. is in supine position now and IV Vancomycin antibiotic running continuously till consumed. Pt. denies pain and comfortable @ this time.
[2019-06-02] MEDS: PRIMIDONE 50 MG TAB PO SCH ×3 (06:04→21:28)
[2019-06-02] MEDS: ARTIFICIAL TEARS 15ml EACHEYE PRN ×2 (06:05→21:30)
[2019-06-02] MEDS: LEVOTHYROXINE SODIUM 100 MCG TAB PO SCH (06:16)
[2019-06-02] MEDS: ALBUTEROL SULF 2.5 MG/0.5ML(0.5%) NEB SOLN NEB SCH ×3 (06:30→19:05)
[2019-06-02] MEDS: IPRATROPIUM BROM 0.5 MG/2.5ML INH SOL NEB SCH ×3 (06:31→19:05)
[2019-06-02 07:20] LABS: Hematocrit 34.7 % (36.0-46.0); Hemoglobin 11.3 g/dL (12.2-16.2); Mean Corpuscular Hemoglobin 30.1 pg (28.0-32.0); Mean Corpuscular Hgb Conc. 32.6 g/dL (32.0-36.0); Mean Corpuscular Volume 92.2 fL (80.0-100.0); Platelet Count (auto) 211 10^3/uL (140-450); Red Blood Cells 3.76 10^6/uL (4.0-5.20); White Blood Cell 12.1 10^3/uL (4.4-10.8)
[2019-06-02 07:34] LABS: Blast Cells 0; Myelocytes % 0; Promyelocytes % 0; Reactive Lymphocytes 0
--- NOTE | 2019-06-02 07:35 | NUR ---
Patient asleep, on O2 at 2 LPM via nasal cannula. O2 Sat = 96%, Heart rate = 61. On Frazier catheter. On specialty mattress. On bed alarm. BIPAP at bedside.
[2019-06-02 07:45] LABS: BUN/Creatinine Ratio 38.9; Calcium 8.8 mg/dL (8.5-10.1); Potassium 4.2 mmol/L (3.5-5.1)
[2019-06-02 08:00] LABS: Band Neutrophils % (manual) 1; Basophils % (manual) 1 (0.0-2.0); Eosinophils % (manual) 4 (0-7); Lymphocytes % (manual) 7 (10.0-50.0); Metamyelocytes % 1; Monocytes % (manual) 7 (0-12)
--- NOTE | 2019-06-02 08:20 | NUR ---
New IV line inserted on the left AC, 20 gauge, intact and patent. Patient able to tolerate it. IV line on the left wrist leaking, IV line removed, IV catheter intact, pressure dressing applied.
--- NOTE | 2019-06-02 08:55 | NUR ---
Called daughter Radha ([phone]). Radha said she's feeling sick, she cannot come over to speak with the doctor.
[2019-06-02 09:00] VITALS: BP 101/55
--- NOTE | 2019-06-02 10:30 | NUR ---
Dr. Armenta came over to see the patient. Patient is asleep.
--- NOTE | 2019-06-02 11:00 | NUR ---
Pt refused PT tx. This QUALITY MEASUREMENT SPECIALIST suggested PT tx later. Pt refused saying "Not today". Addendum: 06/02/19 at 1209 by Luis Okeefe QUALITY MEASUREMENT SPECIALIST Amended: Links added.
[2019-06-02] MEDS: ERTAPENEM SOD INJ 1 GM in SODIUM CHL 0.9% 50 ML IV SCH (11:01)
[2019-06-02] MEDS: FAMOTIDINE 20 MG TAB PO SCH (11:02)
[2019-06-02] MEDS: AMIODARONE HCL 200 MG TAB PO SCH (11:02)
[2019-06-02] MEDS: LISINOPRIL 5 MG TAB PO SCH (11:03)
[2019-06-02] MEDS: PREGABALIN CAPSULE 75 MG CAP PO SCH ×2 (11:03→21:28)
[2019-06-02] MEDS: APIXABAN 5 MG TAB PO SCH ×2 (11:03→21:27)
[2019-06-02 13:00] VITALS: BP 105/60
--- NOTE | 2019-06-02 15:47 | NUR ---
O2 sat = 93% on O2 at 2 LPM via nasal cannula, Heart rate = 60.
--- NOTE | 2019-06-02 15:51 | NUR ---
About 1,400 ml of clear, yellow urine emptied from the Frazier catheter bag.
[2019-06-02 17:17] VITALS: BP 105/62
--- NOTE | 2019-06-02 17:35 | NUR ---
Daughter Radha called asking about the patient and the test results done. Explained to Radha that test results have to be discussed by the doctor. Radha is upset that the doctor has not called her. Explained to Radha the doctor was waiting for her to come over today but she's unable to come because she was feeling sick. Radha said she's feeling sick and she's also taking care of her father but she will try to come over tomorrow.
--- NOTE | 2019-06-02 19:30 | NUR ---
Received report from the Day RN. Richey. Initial assessment done. Pt. in bed resting, sleeping, easily arousable by sound or slight touch by the RN/Caregiver. Pt. alert, awake, oriented x 3-4, @ 2L/NC continuous, HOB Up @ 45- 55 degrees angle, lung sounds diminished, denies chest pain or denies any pain @ this time, mild sob upon exertion but no s/s of sob when resting. Pt. A paced @ the monitor @ 60's per minute. Pt. abdomen soft, rounded and obese. Right arm immobilized due to presence of fracture, F/C draining yellow, clear urine. Pt. on bedrest and with specialty mattress continuous. PIV access @ the LAC G # 20 -Saline Lock, keep patent and intact. Pt. with visitor @ the bedside. Keep pt. environment safe and quiet. Provided privacy.
--- NOTE | 2019-06-02 21:27 | NUR ---
Meds. as scheduled given/administered to the pt. Pt. and family member, daughter Radha provided/given explanation to the meds. given. Pt. and daughter Radha aware of the use and mechanism of action of scheduled meds. Pt. able to swallow medications without difficulty. Pt. HOB UP @ 45 degrees angle, @ 2-3 L/NC continuous, 02 sat. of 97 %, bilateral SCD's started as requested by the pt.'s daughter, pt. verbalized she has mod. pain @ the lower back and buttock area, pt. requested [place] for the moderate 6/10 scale. Pt. 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
--- NOTE | 2019-06-02 21:30 | NUR ---
Pt. eye drop of Artificial tears given 1 gtt to each eye to relieve dryness. Pt. feels relieved and feels comfortable with the eyedrop in her both eyes.
[2019-06-02] MEDS: HYDROcodone-ACET 5/325MG TAB PO PRN (21:36)
--- NOTE | 2019-06-02 21:36 | NUR ---
Pt. given 1 tab. of [place] 5/325 mg. po. for moderate lower back and buttock aching pain of 6/10 scale. Pt. HOB still up @ 45 degrees angle while watching TV with daughter @ the bedside.
[2019-06-02 22:00] VITALS: BP 105/55
--- NOTE | 2019-06-02 22:15 | NUR ---
Called/paged RT to come in Room 248 A and start pt. BIPAP as pt. requested before sleeping.
--- NOTE | 2019-06-02 22:30 | NUR ---
Pt. started on BIPAP by the RT per RT Protocol. HOB up 35-45 degrees angle. Keep pt. safe, warm, and environment quiet and lights and TV off to facilitate sleep. Pt. started to sleep now.
--- NOTE | 2019-06-02 22:36 | NUR ---
Pt. denies pain and ready to sleep after the BIPAP was placed @ around 2230 PM by the RT. Pt. face looks relaxed and no s/s of facila grimacing. Pt. covered with blanket to keep her warm, TV and lights off for her to sleep @ this time.
--- NOTE | 2019-06-03 00:10 | NUR ---
Pt. sleeping undisturbed. BIPAP continuous with 02 sat. @ 97 % . Breathing wheezy and diminished. Pt. able to tolerate BIPAP well. Paced @ the monitor @ 60's per minute. No s/s of pain or discomfort.
[2019-06-03] MEDS: VANCOMYCIN 1GM/250ML 250 ML IV SCH ×2 (01:39→12:52)
--- NOTE | 2019-06-03 01:39 | NUR ---
IV Antibiotic Vancomycin 1GM./250 mls. given @ 0139 AM to the Left AC G # 20. Pt. aware ofthe use and mechanism of the IV. antibiotic given. Pt. verbalized understanding.
[2019-06-03 01:59] LABS: Basophils # (auto) 0.2 10 ^3/uL (0-0.2); Basophils % (auto) 1.4 % (0.0-2.0); Eosinophils # (auto) 0.6 10 ^3/uL (0-0.8); Eosinophils % (auto) 4.2 % (0.0-7.0); Hematocrit 36.4 % (36.0-46.0); Hemoglobin 11.5 g/dL (12.2-16.2); Lymphocytes # (auto) 1.4 10 ^3/uL (0.4-5.4); Mean Corpuscular Hemoglobin 29.1 pg (28.0-32.0); Mean Corpuscular Hgb Conc. 31.5 g/dL (32.0-36.0); Mean Corpuscular Volume 92.3 fL (80.0-100.0); Monocytes % (auto) 7.2 % (0.0-12.0); Neutrophils # (auto) 11.1 10 ^3/uL (1.6-8.6); Neutrophils % (auto) 77.2 % (37.0-80.0); Platelet Count (auto) 242 10^3/uL (140-450); Red Blood Cells 3.94 10^6/uL (4.0-5.20); Red Cell Distribution Width 15.2 % (11.8-14.3); White Blood Cell 14.4 10^3/uL (4.4-10.8)
--- NOTE | 2019-06-03 02:00 | NUR ---
Pt. sleeping, BIPAP continuous, no s/s of sob, and Paced @ the monitor.
[2019-06-03 03:27] LABS: Calcium 9.2 mg/dL (8.5-10.1); Potassium 4.5 mmol/L (3.5-5.1)
[2019-06-03 03:29] LABS: BUN/Creatinine Ratio 31.1
--- NOTE | 2019-06-03 04:00 | NUR ---
Pt. turned/repositioned to the sides, pt. requested to stop the BIPAP for awhile to rest her mouth and pt. placed on 2-3 L/NC. Will notify RT.
[2019-06-03 05:00] VITALS: BP 102/54
[2019-06-03] MEDS: PRIMIDONE 50 MG TAB PO SCH ×3 (06:13→21:38)
[2019-06-03] MEDS: LEVOTHYROXINE SODIUM 100 MCG TAB PO SCH (06:13)
--- NOTE | 2019-06-03 06:13 | NUR ---
Meds. as scheduled due @ 1585-9502 Am given @ this time. Pt. made aware and provided explanation to the benefits of these po. meds. Pt. verbalized understanding.
[2019-06-03] MEDS: ARTIFICIAL TEARS 15ml EACHEYE PRN (06:16)
--- NOTE | 2019-06-03 06:16 | NUR ---
Pt. given Artificial Tears eye drop Eye [place] 1 gtt for each eye for dry eyes @ 0616 AM.
--- NOTE | 2019-06-03 06:16 | NUR ---
Pt. given Artificial tear -
[2019-06-03] MEDS: IPRATROPIUM BROM 0.5 MG/2.5ML INH SOL NEB SCH ×3 (07:57→17:55)
[2019-06-03] MEDS: ALBUTEROL SULF 2.5 MG/0.5ML(0.5%) NEB SOLN NEB SCH ×3 (07:57→17:55)
--- NOTE | 2019-06-03 08:00 | NUR ---
Patient asleep at this time. On O2 at 2 LPM. O2 Sat = 96%, Heart rate = 61.
[2019-06-03 09:00] VITALS: BP 90/43
[2019-06-03] MEDS: LISINOPRIL 5 MG TAB PO SCH (10:00)
--- NOTE | 2019-06-03 10:02 | NUR ---
Dr. Armenta, I. at bedside. explained to patient that she has to get up for physical therapy. Patient refused physical therapy, stated she's hurting when she gets up. Patient asked for antibiotic for her eyes. Dr. Armenta ordered Erythromycin Opthalmic ointment and follow up with physical therapy.
--- NOTE | 2019-06-03 11:00 | NUR ---
Patient refused Physical Therapy at this time. Physical Therapist to come back later.
--- NOTE | 2019-06-03 11:05 | NUR ---
Jordan Mcfadden. ordered to change the Frazier catheter from home.
[2019-06-03] MEDS: ERTAPENEM SOD INJ 1 GM in SODIUM CHL 0.9% 50 ML IV SCH (11:14)
[2019-06-03] MEDS: FAMOTIDINE 20 MG TAB PO SCH (11:15)
[2019-06-03] MEDS: PREGABALIN CAPSULE 75 MG CAP PO SCH ×2 (11:15→21:39)
[2019-06-03] MEDS: AMIODARONE HCL 200 MG TAB PO SCH (11:15)
[2019-06-03] MEDS: APIXABAN 5 MG TAB PO SCH ×2 (11:15→21:39)
--- NOTE | 2019-06-03 11:30 | NUR ---
New Frazier catheter Fr 18 inserted as ordered. Patient able to tolerate it. Old Frazier catheter (from home) removed, about 800 ml of clear, yellow urine collected from the bag.
--- NOTE | 2019-06-03 12:24 | NUR ---
Called Dr. Armenta. made aware patient is MDRO (+) on the urine, patient to be on Isolation Precautions, susceptibility Pip/Tazo. Dr. Armenta said he will look at the results. No new orders given.
--- NOTE | 2019-06-03 12:45 | NUR ---
Pharmacist said patient can have the Vancomycin.
[2019-06-03 13:00] VITALS: BP 104/52
[2019-06-03] MEDS ORDERED: COLISTIMETHATE SODIUM IV SCH ×2 (13:00→13:15)
[2019-06-03] MEDS ORDERED: STERILE WATER IV SCH ×2 (13:00→13:15)
--- NOTE | 2019-06-03 13:10 | NUR ---
Transferred patient via bed from Room 248A to Room 237. Will call to inform the daughter.
--- NOTE | 2019-06-03 13:40 | NUR ---
Called daughter Radha ([phone]) to inform her that patient has been transferred to Room 237.
--- NOTE | 2019-06-03 14:00 | NUR ---
Patient asleep, O2 Sat = 96% on O2 at 2 LPM via nasal cannula, Heart rate = 61.
[2019-06-03] MEDS: COLISTIMETHATE 150 MG IV SCH (14:27)
[2019-06-03 17:00] VITALS: BP 103/52
--- NOTE | 2019-06-03 17:00 | NUR ---
O2 Sat = 96% on O2 at 2 LPM via nasal cannula, Heart rate = 60.
--- NOTE | 2019-06-03 17:20 | NUR ---
Urine specimen sent to Laboratory.
[2019-06-03 20:02] VITALS: BP 96/47
--- NOTE | 2019-06-03 21:30 | NUR ---
Bowel Movement Pt cleaned up and skin care provided after bowel movement, repositioned in bed with aide help, call light within reach.
[2019-06-04] VITALS (7 sets, daily range): BP systolic 93–120; BP diastolic 46–66
[2019-06-04] MEDS ORDERED: VANCOMYCIN 1GM/250ML 250 ML IV SCH (01:00)
[2019-06-04] MEDS: COLISTIMETHATE 150 MG IV SCH ×3 (01:13→22:09)
--- NOTE | 2019-06-04 03:36 | NUR ---
Rounds Patient sleeping on bipap saturation 92%. No S/S of distress/SOB or pain. SCDs on bilaterally. Will continue to monitor changes q1hr and PRN.
[2019-06-04] MEDS: LEVOTHYROXINE SODIUM 100 MCG TAB PO SCH (05:24)
[2019-06-04] MEDS: PRIMIDONE 50 MG TAB PO SCH ×3 (05:24→22:10)
[2019-06-04] MEDS: HYDROcodone-ACET 5/325MG TAB PO PRN ×2 (05:35→23:36)
--- NOTE | 2019-06-04 05:35 | NUR ---
Pain Management Pt medicated for c/o generalized pain with movement, medicated as ordered, repositioned for comfort, scds on bilaterally.
[2019-06-04] MEDS: IPRATROPIUM BROM 0.5 MG/2.5ML INH SOL NEB SCH ×3 (06:31→18:45)
[2019-06-04] MEDS: ALBUTEROL SULF 2.5 MG/0.5ML(0.5%) NEB SOLN NEB SCH ×3 (06:31→18:45)
[2019-06-04 06:35] LABS: Hematocrit 33.5 % (36.0-46.0); Hemoglobin 10.9 g/dL (12.2-16.2); Mean Corpuscular Hemoglobin 30.1 pg (28.0-32.0); Mean Corpuscular Hgb Conc. 32.6 g/dL (32.0-36.0); Mean Corpuscular Volume 92.1 fL (80.0-100.0); Platelet Count (auto) 256 10^3/uL (140-450); Red Blood Cells 3.63 10^6/uL (4.0-5.20); Red Cell Distribution Width 15.2 % (11.8-14.3); White Blood Cell 16.2 10^3/uL (4.4-10.8)
[2019-06-04 06:48] LABS: Potassium 4.3 mmol/L (3.5-5.1)
[2019-06-04 06:54] LABS: Band Neutrophils % (manual) 0; Basophils % (manual) 0 (0.0-2.0); Blast Cells 0; Metamyelocytes % 0; Myelocytes % 0; Promyelocytes % 0; Reactive Lymphocytes 0
--- NOTE | 2019-06-04 07:06 | NUR ---
OPENING SHIFT NOTES Assumed care from night custodian RN. Patient is asleep in bed, supine, no signs of distress noted. Patient is currently receiving oxygen at 3L/minute via nasal cannula, saturation at 96%. SCD's bilaterally, briseno in place, draining clear yellow urine to gravity, no kinks or loops noted bad hung below bladder level. Bed is locked, in the lowest position, side rails upx2, and call light is in reach.
[2019-06-04 07:09] LABS: Calcium 9.1 mg/dL (8.5-10.1)
--- NOTE | 2019-06-04 07:58 | NUR ---
Pharmacy Pharmacy called to deliver natural tears and Colistin, medications not available for night administration
[2019-06-04 08:00] LABS: Eosinophils % (manual) 2 (0-7); Lymphocytes % (manual) 9 (10.0-50.0); Monocytes % (manual) 7 (0-12)
--- NOTE | 2019-06-04 09:14 | NUR ---
PATIENT UPDATED ON THE PLAN OF CARE verbalized understanding, all questions answered.
--- NOTE | 2019-06-04 10:28 | NUR ---
CALLED PHARMACY FOR ERYTHROMYCIN OINTMENT asked to send to unit for administration.
[2019-06-04] MEDS ORDERED: ERYTHROMY OPTH OINT 5mg/gm 1gm EACHEYE SCH (10:30)
[2019-06-04] MEDS: APIXABAN 5 MG TAB PO SCH ×2 (10:31→22:10)
[2019-06-04] MEDS: PREGABALIN CAPSULE 75 MG CAP PO SCH ×2 (10:31→22:10)
[2019-06-04] MEDS: FAMOTIDINE 20 MG TAB PO SCH (10:33)
[2019-06-04] MEDS: AMIODARONE HCL 200 MG TAB PO SCH (10:33)
[2019-06-04] MEDS: LISINOPRIL 5 MG TAB PO SCH (10:34)
--- NOTE | 2019-06-04 10:37 | NUR ---
FAMILY AT BEDSIDE updated on plan of care, verbalized understanding.
--- NOTE | 2019-06-04 11:28 | NUR ---
DR MENDOZA AT BEDSIDE Plan of care discussed with patient and her two daughters, all verbalize understanding. Family was educated on MDRO, physical therapy, and planning for discharge by MD. Patient and family verbalized understanding, all questions answered.
--- NOTE | 2019-06-04 11:58 | NUR ---
ORDER TO ACCESS PORT Per Raudel Dimas to access port.
--- NOTE | 2019-06-04 12:10 | NUR ---
ERYTHROMYCIN OINTMENT RECEIVED will administer as ordered.
--- NOTE | 2019-06-04 13:08 | NUR ---
Port accessed Using sterile technique, flushes well, dressing applied and labeled. Per patient there usually is no blood return via port. No blood return noted. Patient tolerated well.
--- NOTE | 2019-06-04 16:48 | NUR ---
Patient refused to do physical therapy said she is too tired even to do bed exercises patient educated on importance of doing PT, but still refused and said she just wants to sleep. Regla Poon was notified. Addendum: 06/04/19 at 1650 by LANCE RUTLEDGE PTT Amended: Links added.
--- NOTE | 2019-06-04 18:10 | NUR ---
PATIENT COMPLAINING OF DRY EYE eye drops will be administered as ordered.
[2019-06-04] MEDS: ARTIFICIAL TEARS 15ml EACHEYE PRN (18:12)
--- NOTE | 2019-06-04 19:22 | NUR ---
Closing shift notes Care endorsed to production supervisor off shift RN.
--- NOTE | 2019-06-04 19:40 | NUR ---
Opening Shift Note Assumed care of patient, awake and alert. No S/S of distress/SOB or pain. POC discussed and questions answered. Bed is locked in lowest position with side rails up x2 for safety. Call light is within reach and encouraged to call for assistance PRN, will continue to monitor for changes Q1hr and PRN.
--- NOTE | 2019-06-04 23:35 | NUR ---
Respiratory note: PLACED PT ON CPAP. CPAP UNIT CONNECTED TO RED OUTLET WITH 3LPM O2 BLEED IN., PT ON NASAL MASK, NO REDNESS OR BREAKDOWN NOTED PRIOR TO PLACEMENT. CONTINUOUS POX AT BEDSIDE PER PROTOCOL. POX PROBE ON LEFT INDEX FINGER, CPAP WATER CHAMBER AT ADEQUATE LEVEL. BS ARE DIMINISHED T/O, PT AWARE I CAN BE PAGED AT ANY TIME SHE HAS A CONCERN.WILL CONTINUE TO MONITOR Q2H AND NEEDED. RN KEV COMMUNICATED OF PLACEMENT.
--- NOTE | 2019-06-04 23:36 | NUR ---
PAIN PATIENT STATING 10/04 AND REQUESTING [facility] FOR THE PAIN. WILL CONTINUE TO MONITOR FOR CHANGES.
--- NOTE | 2019-06-05 00:51 | NUR ---
PAIN REASSESSMENT PATIENT ASLEEP, NO S/S OF DISTRESS NOTED. WILL CONTINUE TO MONITOR
[2019-06-05 04:00] VITALS: BP 100/59
[2019-06-05] MEDS ORDERED: PRIMIDONE 50 MG TAB ONE ×2 (06:37→06:38)
[2019-06-05] MEDS: PRIMIDONE 50 MG TAB PO SCH ×3 (06:40→22:34)
[2019-06-05] MEDS: LEVOTHYROXINE SODIUM 100 MCG TAB PO SCH (06:40)
[2019-06-05 06:57] LABS: Hematocrit 34.6 % (36.0-46.0); Hemoglobin 11.2 g/dL (12.2-16.2); Mean Corpuscular Hemoglobin 29.6 pg (28.0-32.0); Mean Corpuscular Hgb Conc. 32.4 g/dL (32.0-36.0); Mean Corpuscular Volume 91.4 fL (80.0-100.0); Platelet Count (auto) 288 10^3/uL (140-450); Red Blood Cells 3.78 10^6/uL (4.0-5.20); Red Cell Distribution Width 15.1 % (11.8-14.3); White Blood Cell 14.5 10^3/uL (4.4-10.8)
--- NOTE | 2019-06-05 07:08 | NUR ---
OPENING SHIFT NOTES Assumed care from night auditor RN. Patient is asleep in bed, supine, no signs of distress noted. Patient is currently receiving oxygen at 3L/minute via nasal cannula, saturation at 98%. SCD's bilaterally, briseno in place, draining clear yellow urine to gravity, no kinks or loops noted bad hung below bladder level. Bed is locked, in the lowest position, side rails upx2, and call light is in reach.
[2019-06-05 07:12] LABS: Band Neutrophils % (manual) 0; Basophils % (manual) 0 (0.0-2.0); Blast Cells 0; Myelocytes % 0; Promyelocytes % 0; Reactive Lymphocytes 0
[2019-06-05] MEDS: ALBUTEROL SULF 2.5 MG/0.5ML(0.5%) NEB SOLN NEB SCH ×3 (07:16→18:54)
[2019-06-05] MEDS: IPRATROPIUM BROM 0.5 MG/2.5ML INH SOL NEB SCH ×3 (07:16→18:54)
[2019-06-05 07:38] LABS: Eosinophils % (manual) 4 (0-7); Lymphocytes % (manual) 15 (10.0-50.0); Metamyelocytes % 1; Monocytes % (manual) 8 (0-12)
[2019-06-05 09:24] VITALS: BP 106/70
[2019-06-05] MEDS: FAMOTIDINE 20 MG TAB PO SCH (10:09)
[2019-06-05] MEDS: AMIODARONE HCL 200 MG TAB PO SCH (10:10)
[2019-06-05] MEDS: PREGABALIN CAPSULE 75 MG CAP PO SCH ×2 (10:10→22:34)
[2019-06-05] MEDS: LISINOPRIL 5 MG TAB PO SCH (10:10)
[2019-06-05] MEDS: APIXABAN 5 MG TAB PO SCH ×2 (10:10→22:34)
--- NOTE | 2019-06-05 10:15 | NUR ---
PATIENT REQUESTING ERYTHROMYCIN OINTMENT BE ADMINISTERED AT NIGHT Called pharmacy at patient request, they will change the administration time to 1999.
[2019-06-05] MEDS: ARTIFICIAL TEARS 15ml EACHEYE PRN ×2 (10:36→20:07)
[2019-06-05] MEDS: COLISTIMETHATE 150 MG IV SCH ×2 (10:36→22:33)
[2019-06-05 13:00] VITALS: BP 115/76
--- NOTE | 2019-06-05 13:25 | NUR ---
KELLY AT BEDSIDE no new orders received.
--- NOTE | 2019-06-05 15:15 | NUR ---
D/C Planning Per SS consult for colistin 75mg IV q12hrs for MDRO in urine for 3 weeks. Information and choice letter was given to patient. Patient requested [facility]. Faxed orders to [facility]. Per Erlinda with [facility] patient has been accepted to room 101 bed [address] Armenta. Transportation will be arrange with General transport upon d/c day.
[2019-06-05 16:34] VITALS: BP 116/70
--- NOTE | 2019-06-05 18:58 | NUR ---
Closing shift notes Care endorsed to shift coordinator RN.
--- NOTE | 2019-06-05 19:10 | NUR ---
Opening Shift Note Assumed care of patient, awake and alert. No S/S of distress/SOB or pain. POC discussed and questions answered. Bed is locked in lowest position with side rails up x2 for safety. Call light is within reach and patient encouraged to call for assistance as needed. Will continue to monitor for changes Q1hr and PRN.
[2019-06-05] MEDS: ERYTHROMY OPTH OINT 5mg/gm 1gm EACHEYE SCH (20:06)
[2019-06-05 22:00] VITALS: BP 105/64
[2019-06-06 05:00] VITALS: BP 110/71
[2019-06-06] MEDS: ALBUTEROL SULF 2.5 MG/0.5ML(0.5%) NEB SOLN NEB SCH ×3 (06:33→19:03)
[2019-06-06] MEDS: IPRATROPIUM BROM 0.5 MG/2.5ML INH SOL NEB SCH ×3 (06:33→19:03)
[2019-06-06] MEDS: PRIMIDONE 50 MG TAB PO SCH ×3 (06:41→22:27)
[2019-06-06] MEDS: LEVOTHYROXINE SODIUM 100 MCG TAB PO SCH (06:41)
[2019-06-06 08:00] VITALS: BP 106/70
--- NOTE | 2019-06-06 08:30 | NUR ---
BREAKFAST PT ASSISTED WITH NURSE AIDE WITH HER MEALS, HEAD OF BED ELEVATED FOR ASPIRATION PRECAUTIONS
[2019-06-06 09:40] VITALS: BP 125/69
[2019-06-06] MEDS: APIXABAN 5 MG TAB PO SCH ×2 (09:44→22:27)
[2019-06-06] MEDS: PREGABALIN CAPSULE 75 MG CAP PO SCH ×2 (09:44→22:27)
[2019-06-06] MEDS: FAMOTIDINE 20 MG TAB PO SCH (09:45)
[2019-06-06] MEDS: AMIODARONE HCL 200 MG TAB PO SCH (09:45)
[2019-06-06] MEDS: LISINOPRIL 5 MG TAB PO SCH (09:46)
[2019-06-06] MEDS: COLISTIMETHATE 150 MG IV SCH (10:00)
[2019-06-06] MEDS: ERYTHROMY OPTH OINT 5mg/gm 1gm EACHEYE SCH (10:00)
--- NOTE | 2019-06-06 10:00 | NUR ---
ERYTHROMYCIN OINTMENT PT REFUSED TO TAKE IT STATED WHEN CAN NOT SEE WHEN I TAKE IT, I RATHER TO TAKE IT AT NIGHT TIME
[2019-06-06] MEDS ORDERED: DOCUSATE SOD 100 MG CAP PO PRN (11:00)
[2019-06-06] MEDS ORDERED: DOCUSATE SOD 100 MG CAP PO ONE (11:00)
--- NOTE | 2019-06-06 11:00 | NUR ---
PHYSICAL THERAPY AT BEDS SIDE ASSISTING PT TO GET OUT OF BED, PT SAT AT THE SIDE OF THE BED ONLY, THEN BACK TO BED
[2019-06-06 11:19] LABS: Hematocrit 36.3 % (36.0-46.0); Hemoglobin 11.6 g/dL (12.2-16.2); Mean Corpuscular Hemoglobin 29.4 pg (28.0-32.0); Mean Corpuscular Hgb Conc. 31.9 g/dL (32.0-36.0); Platelet Count (auto) 303 10^3/uL (140-450); Red Blood Cells 3.94 10^6/uL (4.0-5.20); White Blood Cell 16.8 10^3/uL (4.4-10.8)
[2019-06-06 11:30] LABS: Calcium 9.4 mg/dL (8.5-10.1); Potassium 4.7 mmol/L (3.5-5.1)
[2019-06-06 11:32] LABS: BUN/Creatinine Ratio 46.7
[2019-06-06 11:34] LABS: Band Neutrophils % (manual) 0; Basophils % (manual) 0 (0.0-2.0); Blast Cells 0; Eosinophils % (manual) 0 (0-7); Metamyelocytes % 0; Promyelocytes % 0; Reactive Lymphocytes 0
--- NOTE | 2019-06-06 11:35 | NUR ---
DR MENDOZA MADE AWARE THAT PT NEED A STOOL SOFTENER, A SOPHIA LAX ORDER TO OBTAIN
--- NOTE | 2019-06-06 11:36 | NUR ---
WOUND CARE NOTE: Wound care into see patient for reevaluation of skin integrity issue that are noted present on admission. Patient continue resting on air mattress in Rm. 237A. Patient is awake, alert and able to verbalize needs. Patient is in no stated pain at this time and she appears to be in no pain using Staley Simmons Faces Pain Scale. She need assistance in turning and repositioning. Her Luis score is 18. Skin assessment done with the help of nurse executive assistant to general counsel bedside. Patient's bilateral buttocks continue to display Moisture associated skin damage with erythremic and dry peeling skin. Kathy care given and applied Z Guard cream as ordered. MASD to bilateral thigh is much improved. Intact pink collagen scar tissue to her Rt ankle remain the same, area is clean and dry, left open to air. new photograph of patient's skin issue are taken for reference. Patient tolerated well, repositioned for comfort. Bed in low position, call avina on hand with all safety precautions in placed. RECOMMENDATION: Continuation of all wound care orders prescribed by MD, continue with skin/wound plan of care, continue monitoring by wound care while patient is hospitalized. Addendum: 06/06/19 at 1808 by Drea Doe RN Amended: Links added.
--- NOTE | 2019-06-06 11:40 | NUR ---
DR MENDOZA AT BEDS RUBÉN FOLLOWING UP ON PT
[2019-06-06] MEDS ORDERED: POLYETHYLENE GLYCOL 17 GM PWDR PO ONE (11:45)
[2019-06-06 11:58] LABS: Lymphocytes % (manual) 9 (10.0-50.0); Monocytes % (manual) 5 (0-12); Myelocytes % 1
--- NOTE | 2019-06-06 12:00 | NUR ---
PHYSICAL THERAPY ASSITED PT TO GET OUT OF BED AND SIT ON CHAIR AT BED SIDE PER DR MENDOZA REQUEST
[2019-06-06] MEDS: HYDROcodone-ACET 5/325MG TAB PO PRN (12:29)
[2019-06-06 13:00] VITALS: BP 120/60
--- NOTE | 2019-06-06 13:00 | NUR ---
BACK TO BED WITH THE ASSISTANCE OF THE PHYSICAL THERAPY, TOLERATED WELL
--- NOTE | 2019-06-06 13:39 | NUR ---
PATIENT'S DAUGHTER OVER THE PHONE, MADE AWARE PER DR MENDOZA HER MOM WILL BE TRANSFER TODAY, VERBALIS UNDERSTANDING
[2019-06-06] MEDS: CeftoloZANE-TAZOB 1g/0.5g in D5W 5% 100 ML IV SCH ×2 (14:00→22:26)
--- NOTE | 2019-06-06 15:14 | NUR ---
Nutrition Follow-up Notes Wt.: 96.5 kg today Pt is currently on Cardiac diet with good appetite aeb avg PO intake 91%. Est energy needs: 6437-0694 kcals (14-18 kcal/kgBW). Est protein needs: 68-85 gms/day (1.2-1.5 gm/kgBW) d/t age and P/U. Will continue to monitor pertinent labs and reassess nutrient needs prn Labs 06/05: Na 134 L, CO2 34 H, Anion gap 2 L, BUN 21 H, Cr 0.45 L Skin: Luis scale 18, mod risk, pressure ulcer to sacrum per senior oracle database administrator. GI: Pt had BM 06/04/19 per senior oracle database administrator. PES: 1) Obesity r/t energy intake in excess of energy needs aeb 199% IBW and BMI of 38.9 kg/m2 2) Altered nutrition related lab values r/t current medical condition aeb altered RFTs, hypoalb Will continue to monitor PO status, skin status, pertinent labs and weight trend. F/u in 3 to 5 days. Recommendations: 1) Continue to closely monitor pt PO intake to meet a goal of at least 75% of meals eaten 2) Consider a daily MVI with 500mg VitC BID 3) If albumin continues trending down with improved RFTs, consider Prostat 1 pkt BID 4) Refer pt to RD for nutrition education upon D/C 5) Continue current plan of care
--- NOTE | 2019-06-06 16:11 | NUR ---
re-assessment Per consult patients daughter Radha wants to speak with SW. Per Radha she wants to know if patient can go to SNF for IV ABX, if not she is willing to take patient home for IV ABX. Yas GARCIA1 will follow up with [facility] and let let Radha know if patient has a co-pay. Radha verbalized understanding. Addendum: 06/06/19 at 1613 by Maggie Garcia Amended: Links added.
[2019-06-06 16:53] VITALS: BP 102/54
--- NOTE | 2019-06-06 18:45 | NUR ---
PT CONTINUE STABLE, CONTINUE MONITORING
[2019-06-06] MEDS: ARTIFICIAL TEARS 15ml EACHEYE PRN (20:46)
[2019-06-06 22:28] VITALS: BP 101/55
--- NOTE | 2019-06-06 23:00 | NUR ---
Respiratory note: PLACED PT ON CPAP. CPAP UNIT CONNECTED TO RED OUTLET WITH 3LPM O2 BLEED IN. PT ON NASAL MASK, NO REDNESS OR BREAKDOWN NOTED PRIOR TO PLACEMENT. CONTINUOS POX AT BEDSIDE PER PROTOCOL. POX PROBE ON LEFT INDEX FINGER, CPAP WATER CHAMBER AT ADEQUATE LEVEL. BS ARE DIMINISHED T/O, PT AWARE I CAN BE PAGED AT ANY TIME SHE HAS A CONCERN. WILL CONTINUE TO MONITOR Q2H AND NEEDED. RN KEV MADE AWARE OF PLACEMENT.
--- NOTE | 2019-06-07 01:56 | NUR ---
Respiratory note: AT BEDSIDE FOR CPAP CHECK. PT COMFORTABLY SLEEPING AT THIS TIME. WILL CONTINUE TO MONITOR.
--- NOTE | 2019-06-07 04:04 | NUR ---
Respiratory note: AT BEDSIDE FOR END OF SHIFT CPAP CHECK. NO CHANGES MADE. PT COMFORTABLY SLEEPING AT THIS TIME. WILL HAVE DAY SHIFT CONTINUE POC.
[2019-06-07 05:54] VITALS: BP 112/68
[2019-06-07] MEDS: LEVOTHYROXINE SODIUM 100 MCG TAB PO SCH (06:21)
[2019-06-07] MEDS: PRIMIDONE 50 MG TAB PO SCH ×2 (06:21→13:36)
[2019-06-07] MEDS: CeftoloZANE-TAZOB 1g/0.5g in D5W 5% 100 ML IV SCH ×2 (06:21→13:35)
[2019-06-07 06:33] LABS: Hematocrit 35.5 % (36.0-46.0); Hemoglobin 11.6 g/dL (12.2-16.2); Mean Corpuscular Hgb Conc. 32.7 g/dL (32.0-36.0); Mean Corpuscular Volume 94.8 fL (80.0-100.0); Platelet Count (auto) 191 10^3/uL (140-450); Red Blood Cells 3.74 10^6/uL (4.0-5.20); Red Cell Distribution Width 15.4 % (11.8-14.3); White Blood Cell 15.2 10^3/uL (4.4-10.8)
[2019-06-07] MEDS: ALBUTEROL SULF 2.5 MG/0.5ML(0.5%) NEB SOLN NEB SCH ×3 (06:51→18:20)
[2019-06-07] MEDS: IPRATROPIUM BROM 0.5 MG/2.5ML INH SOL NEB SCH ×3 (06:51→18:20)
[2019-06-07 06:54] LABS: Basophils % (manual) 0 (0.0-2.0); Blast Cells 0; Promyelocytes % 0; Reactive Lymphocytes 0
--- NOTE | 2019-06-07 07:00 | NUR ---
Opening Shift Note Received report on the patient. Awake lying in bed. Discussed plan of care with the patient. Patient shows no signs of distress at this time. Bed in lowest position, side rail up x2, and the call light is within reach. Will continue to monitor.
[2019-06-07 07:33] LABS: Band Neutrophils % (manual) 2; Eosinophils % (manual) 4 (0-7); Lymphocytes % (manual) 14 (10.0-50.0); Metamyelocytes % 1; Monocytes % (manual) 6 (0-12); Myelocytes % 1
[2019-06-07 08:00] VITALS: BP 125/69
[2019-06-07 09:00] VITALS: BP 120/67
[2019-06-07] MEDS: AMIODARONE HCL 200 MG TAB PO SCH (10:23)
[2019-06-07] MEDS: APIXABAN 5 MG TAB PO SCH (10:23)
[2019-06-07] MEDS: PREGABALIN CAPSULE 75 MG CAP PO SCH (10:24)
[2019-06-07] MEDS: LISINOPRIL 5 MG TAB PO SCH (10:24)
[2019-06-07] MEDS: FAMOTIDINE 20 MG TAB PO SCH (10:33)
[2019-06-07] MEDS: ARTIFICIAL TEARS 15ml EACHEYE PRN (12:16)
[2019-06-07 13:00] VITALS: BP 101/55
--- NOTE | 2019-06-07 14:04 | NUR ---
D/C Planning Faxed updated order to [facility] for Zerbaxa 1.5gm q8hrs for 21 days. Per Erlinda with [facility] advised me they will not be able to accommodate patient needs due to medication. Dr. Armenta was informed regarding placement.
--- NOTE | 2019-06-07 15:45 | NUR ---
D/C Planning Received called from Erlinda with [facility] [phone] stating patient secondary insurance will cover patient medication and they are able to accept. Patient will be going to room [address] Armenta. Transportation has been arrange between 17:30-18:00 with General transport [phone] via [facility]. VEENA Allen was informed.
[2019-06-07 16:15] VITALS: BP 101/55
[2019-06-07 17:00] VITALS: BP 101/50
--- NOTE | 2019-06-07 19:16 | NUR ---
Discharge instructions given as ordered. Encourage to follow up with PMD as instructed. All questions and concerns addressed. Patient verbalized understanding. Medication reconciliation form completed and copy given to patient. Patient left with briseno and venu cath. Patient taken to vehicle via wheelchair with all personal belongings, accompanied by staff and family member. No distress noted at time of departure.
== END 2019-06-07 19:16 | DRG 871 ==
LOC: ER 13:22 → EDBD 13:22 → TELE 13:23 → TELE-EAST 20:23
PROVIDERS: ADMIT Nurse Practitioner Acute Care; ATTEND Internal Medicine
DX: A41.9 Sepsis, unspecified organism (principal); J18.9 Pneumonia, unspecified organism; J96.01 Acute respiratory failure with hypoxia; E44.0 Moderate protein-calorie malnutrition; N30.00 Acute cystitis without hematuria; I50.32 Chronic diastolic (congestive) heart failure; J44.0 Chronic obstructive pulmonary disease with (acute) lower respiratory infection; Z68.41 Body mass index [BMI] 40.0-44.9, adult; Z16.24 Resistance to multiple antibiotics; E78.00 Pure hypercholesterolemia, unspecified; I10 Essential (primary) hypertension; Z51.5 Encounter for palliative care; I11.0 Hypertensive heart disease with heart failure; F41.9 Anxiety disorder, unspecified; I48.91 Unspecified atrial fibrillation; Z95.0 Presence of cardiac pacemaker; Z87.440 Personal history of urinary (tract) infections; Z79.899 Other long term (current) drug therapy; Z74.01 Bed confinement status; Z82.49 Family history of ischemic heart disease and other diseases of the circulatory system; Z82.3 Family history of stroke; Z80.3 Family history of malignant neoplasm of breast; Z79.01 Long term (current) use of anticoagulants
CPT/HCPCS: 36415; 36600; 51702; 71045; 80048; 80053; 80202; 80307; 81001; 82565; 82805; 83605; 83735; 83880; 84439; 84443; 84484; 85007; 85025; 85027; 87040; 87077; 87081; 87086; 87186; 87804; 93005; 94640; 94644; 94660; 96361; 96365; 97110; 97163; 97530; 99291; G0378; J1335; J1956; J3490; J7060

== ENCOUNTER 2019-08-29 19:05 | Inpatient (IN) | payer MEDICARE, OTHER ==
[~2019-08-29] VITALS: Ht 152.4 cm; Wt 46.5 kg
[~2019-08-29 19:05] MED LIST changes: -CALCCHW53 OR; +CALCCHW53 PO
[2019-08-29] MEDS ORDERED: SODIUM CHLORIDE 0.9% 1,000 ML IVB ONE (21:16)
[2019-08-29 22:09] LABS: Hematocrit 45.3 % (36.0-46.0); Hemoglobin 14.5 g/dL (12.2-16.2); Mean Corpuscular Hemoglobin 28.6 pg (28.0-32.0); Mean Corpuscular Hgb Conc. 31.9 g/dL (32.0-36.0); Mean Corpuscular Volume 89.5 fL (80.0-100.0); Platelet Count (auto) 279 10^3/uL (140-450); Red Blood Cells 5.06 10^6/uL (4.0-5.20); Red Cell Distribution Width 14.3 % (11.8-14.3); White Blood Cell 27.8 10^3/uL (4.4-10.8)
[2019-08-29 22:26] LABS: Albumin 3.5 g/dL (3.4-5.0); Anion Gap 6 (5-15); Blood Urea Nitrogen 19 mg/dL (7-18); Calcium 8.9 mg/dL (8.5-10.1); Carbon Dioxide 29 mmol/L (21-32); Chloride 98 mmol/L (98-107); Glucose 101 mg/dL (74-106); Magnesium 2.5 mg/dL (1.6-2.6); Potassium 4.3 mmol/L (3.5-5.1); Sodium 133 mmol/L (136-145)
[2019-08-29 22:27] LABS: Band Neutrophils % (manual) 0; Blast Cells 0; Promyelocytes % 0; Reactive Lymphocytes 0
[2019-08-29 22:31] LABS: Alanine Aminotransferase 22 U/L (13-56); Alkaline Phosphatase 99 U/L (45-117); Aspartate Aminotransferase 26 U/L (15-37); BUN/Creatinine Ratio 38.8; Bilirubin, Total 0.4 mg/dL (0.2-1.0); GFR African American 155 mL/min; GFR Non-African American 128 mL/min; Total Protein 7.8 g/dL (6.4-8.2)
[2019-08-29 22:32] LABS: Basophils % (manual) 1 (0.0-2.0); Eosinophils % (manual) 2 (0-7); Lymphocytes % (manual) 5 (10.0-50.0); Metamyelocytes % 2; Monocytes % (manual) 9 (0-12); Myelocytes % 1
[2019-08-29 22:38] LABS: Urine Bacteria MANY /hpf (None Seen); Urine Blood 1+ /uL (Negative); Urine Mucus MANY (None Seen); Urine Specific Gravity 1.018 (1.001-1.035); Urine WBC 423 /hpf (0 - 5)
[2019-08-30] MEDS ORDERED: PIPERACILLIN-TAZOB 3.375GM 100 ML IV ONE (00:30)
[2019-08-30] MEDS ORDERED: ONDANSETRON HCL 4 MG/2 ML VIAL IV PRN (04:45)
[2019-08-30] MEDS ORDERED: ACETAMINOPHEN 325 MG TAB PO PRN (04:45)
[2019-08-30] MEDS: LEVOTHYROXINE SODIUM 100 MCG TAB PO SCH (06:32)
[2019-08-30] MEDS ORDERED: cefTRIAXone 1GM/50ML D5W 50 ML IV SCH (09:00)
[2019-08-30] MEDS: FUROSEMIDE 40 MG TAB PO SCH (10:00)
[2019-08-30] MEDS: LISINOPRIL 5 MG TAB PO SCH (10:00)
[2019-08-30] MEDS: METOPROLOL TARTRATE 25 MG TAB PO SCH ×2 (10:00→21:48)
[2019-08-30] MEDS: DIGOXIN 0.125 MG TAB PO SCH (10:15)
[2019-08-30] MEDS: FAMOTIDINE 20 MG TAB PO SCH (10:15)
[2019-08-30] MEDS: AMIODARONE HCL 200 MG TAB PO SCH (10:15)
[2019-08-30 12:56] LABS: INR 1.13 (0.9-1.15); Partial Thromboplastin Time 29.3 sec (23.64-32.05)
[2019-08-30] MEDS ORDERED: ATOR10TA PO (17:23)
[2019-08-30] MEDS ORDERED: METO25TA5 PO (17:23)
[2019-08-30] MEDS ORDERED: OXYB5TAB24 PO (17:25)
[2019-08-30] MEDS ORDERED: LEVO75TA6 PO (17:25)
[2019-08-30] MEDS ORDERED: POTA-180 PO (17:25)
[2019-08-30] MEDS ORDERED: POLY33504 PO (17:27)
[2019-08-30] MEDS ORDERED: ALPR0.5T7 PO (17:30)
[2019-08-30] MEDS ORDERED: SILD20TA12 PO (17:31)
[2019-08-30] MEDS ORDERED: REVE175S IN (17:39)
[2019-08-30] MEDS: CeftoloZANE-TAZOB 0.75 GM in D5W 5% 100 ML IV SCH (21:47)
[2019-08-30] MEDS: APIXABAN 2.5 MG TAB PO SCH (21:47)
[2019-08-30 22:00] VITALS: BP 134/77
[2019-08-31 05:00] VITALS: BP 141/81
[2019-08-31] MEDS: CeftoloZANE-TAZOB 0.75 GM in D5W 5% 100 ML IV SCH ×3 (05:36→22:02)
[2019-08-31 06:22] LABS: Hemoglobin 12.5 g/dL (12.2-16.2); Mean Corpuscular Hemoglobin 28.9 pg (28.0-32.0); Mean Corpuscular Hgb Conc. 31.9 g/dL (32.0-36.0); Mean Corpuscular Volume 90.4 fL (80.0-100.0); Platelet Count (auto) 259 10^3/uL (140-450); Red Blood Cells 4.32 10^6/uL (4.0-5.20); Red Cell Distribution Width 14.7 % (11.8-14.3)
[2019-08-31 06:40] LABS: BUN/Creatinine Ratio 40.5; Calcium 8.6 mg/dL (8.5-10.1); Potassium 4.1 mmol/L (3.5-5.1)
[2019-08-31 06:51] LABS: Basophils % (manual) 0 (0.0-2.0); Blast Cells 0; Promyelocytes % 0; Reactive Lymphocytes 0
[2019-08-31 07:34] LABS: Band Neutrophils % (manual) 2; Eosinophils % (manual) 3 (0-7); Lymphocytes % (manual) 12 (10.0-50.0); Metamyelocytes % 1; Monocytes % (manual) 10 (0-12); Myelocytes % 1
[2019-08-31 08:00] VITALS: BP 135/73
[2019-08-31] MEDS: FUROSEMIDE 40 MG TAB PO SCH (10:38)
[2019-08-31] MEDS: FAMOTIDINE 20 MG TAB PO SCH (10:38)
[2019-08-31] MEDS: DIGOXIN 0.125 MG TAB PO SCH (10:39)
[2019-08-31] MEDS: APIXABAN 2.5 MG TAB PO SCH ×2 (10:39→22:03)
[2019-08-31] MEDS: LISINOPRIL 5 MG TAB PO SCH (10:39)
[2019-08-31] MEDS: AMIODARONE HCL 200 MG TAB PO SCH (10:39)
[2019-08-31] MEDS: METOPROLOL TARTRATE 25 MG TAB PO SCH ×2 (10:39→22:03)
[2019-08-31] MEDS ORDERED: VANCOMYCIN PER PHARMACY 0 MG IV SCH (11:30)
[2019-08-31 12:00] VITALS: BP 145/70
[2019-08-31] MEDS ORDERED: ARTIFICIAL TEARS 15ml EACHEYE PRN (13:00)
[2019-08-31] MEDS ORDERED: LEVOTHYROXINE SODIUM 50 MCG TAB PO ONE (13:00)
[2019-08-31] MEDS ORDERED: POLYETHYLENE GLYCOL 17 GM PWDR PO ONE (13:00)
[2019-08-31] MEDS: LEVOTHYROXINE SODIUM 100 MCG TAB PO SCH (13:42)
[2019-08-31] MEDS: VANCOMYCIN 1GM/250ML 250 ML IV SCH (13:44)
[2019-08-31] MEDS: PRIMIDONE 50 MG TAB PO SCH ×2 (14:57→22:04)
[2019-08-31] MEDS: FLORASTOR (S. BOULARDII) 250 MG CAP PO SCH (14:57)
[2019-08-31 16:53] VITALS: BP 125/72
[2019-08-31 21:55] VITALS: BP 125/64
[2019-08-31] MEDS: HYDROCORTONE 1% TOPICAL CREAM 30 GM TUBE TOP SCH (22:04)
[2019-09-01 04:46] VITALS: BP 108/65
[2019-09-01 05:49] LABS: Basophils # (auto) 0.2 10 ^3/uL (0-0.2); Basophils % (auto) 1.3 % (0.0-2.0); Eosinophils # (auto) 0.7 10 ^3/uL (0-0.8); Eosinophils % (auto) 4.3 % (0.0-7.0); Hematocrit 40.8 % (36.0-46.0); Lymphocytes # (auto) 1.9 10 ^3/uL (0.4-5.4); Lymphocytes % (auto) 11.9 % (10.0-50.0); Mean Corpuscular Hgb Conc. 31.9 g/dL (32.0-36.0); Mean Corpuscular Volume 90.9 fL (80.0-100.0); Monocytes # (auto) 0.1 10 ^3/uL (0-1.3); Monocytes % (auto) 0.4 % (0.0-12.0); Neutrophils # (auto) 13.1 10 ^3/uL (1.6-8.6); Neutrophils % (auto) 82.1 % (37.0-80.0); Platelet Count (auto) 257 10^3/uL (140-450); Red Blood Cells 4.49 10^6/uL (4.0-5.20); Red Cell Distribution Width 14.4 % (11.8-14.3); White Blood Cell 15.9 10^3/uL (4.4-10.8)
[2019-09-01] MEDS: LEVOTHYROXINE SODIUM 100 MCG TAB PO SCH ×2 (06:03→06:04)
[2019-09-01] MEDS: PRIMIDONE 50 MG TAB PO SCH ×3 (06:03→23:41)
[2019-09-01 06:04] LABS: Potassium 3.9 mmol/L (3.5-5.1)
[2019-09-01] MEDS: LACTULOSE 20Gm/30ML SOLN PO PRN ×2 (06:05→18:24)
[2019-09-01 06:17] LABS: BUN/Creatinine Ratio 38.9; Bilirubin, Total 0.3 mg/dL (0.2-1.0); Calcium 8.8 mg/dL (8.5-10.1); Total Protein 6.8 g/dL (6.4-8.2)
[2019-09-01] MEDS: CeftoloZANE-TAZOB 0.75 GM in D5W 5% 100 ML IV SCH ×3 (07:46→23:00)
[2019-09-01 08:00] VITALS: BP 127/74
[2019-09-01] MEDS: FAMOTIDINE 20 MG TAB PO SCH (09:29)
[2019-09-01] MEDS: FLORASTOR (S. BOULARDII) 250 MG CAP PO SCH (09:30)
[2019-09-01] MEDS: METOPROLOL TARTRATE 25 MG TAB PO SCH ×2 (09:30→23:41)
[2019-09-01] MEDS: FUROSEMIDE 40 MG TAB PO SCH (09:30)
[2019-09-01] MEDS: AMIODARONE HCL 200 MG TAB PO SCH (09:30)
[2019-09-01] MEDS: DIGOXIN 0.125 MG TAB PO SCH (09:31)
[2019-09-01] MEDS: APIXABAN 2.5 MG TAB PO SCH ×2 (09:31→23:40)
[2019-09-01] MEDS: HYDROCORTONE 1% TOPICAL CREAM 30 GM TUBE TOP SCH ×2 (09:32→23:42)
[2019-09-01] MEDS: LISINOPRIL 5 MG TAB PO SCH (09:32)
[2019-09-01] MEDS: POLYETHYLENE GLYCOL 17 GM PWDR PO SCH (09:32)
[2019-09-01 12:00] VITALS: BP 108/64
[2019-09-01] MEDS: VANCOMYCIN 1GM/250ML 250 ML IV SCH (13:20)
[2019-09-01] MEDS: GENTAMICIN SULF 0.3% OPTH(EYE) OINT 3.5GM EACHEYE SCH ×3 (14:54→23:40)
[2019-09-01 17:00] VITALS: BP 132/65
[2019-09-01 21:45] VITALS: BP 96/52
[2019-09-02 02:00] VITALS: BP 108/74
[2019-09-02 04:38] VITALS: BP 94/48
[2019-09-02 05:24] LABS: Hematocrit 39.4 % (36.0-46.0); Hemoglobin 12.5 g/dL (12.2-16.2); Mean Corpuscular Hemoglobin 28.7 pg (28.0-32.0); Mean Corpuscular Hgb Conc. 31.8 g/dL (32.0-36.0); Mean Corpuscular Volume 90.3 fL (80.0-100.0); Platelet Count (auto) 280 10^3/uL (140-450); Red Blood Cells 4.36 10^6/uL (4.0-5.20); Red Cell Distribution Width 14.5 % (11.8-14.3); White Blood Cell 19.9 10^3/uL (4.4-10.8)
[2019-09-02 05:26] LABS: Albumin 2.9 g/dL (3.4-5.0); Band Neutrophils % (manual) 0; Basophils % (manual) 0 (0.0-2.0); Blast Cells 0; Calcium 8.7 mg/dL (8.5-10.1); Eosinophils % (manual) 0 (0-7); Metamyelocytes % 0; Myelocytes % 0; Potassium 3.8 mmol/L (3.5-5.1); Promyelocytes % 0; Reactive Lymphocytes 0
[2019-09-02 05:31] LABS: Bilirubin, Total 0.3 mg/dL (0.2-1.0); Total Protein 6.4 g/dL (6.4-8.2)
[2019-09-02 06:26] LABS: Lymphocytes % (manual) 14 (10.0-50.0); Monocytes % (manual) 8 (0-12)
[2019-09-02] MEDS: GENTAMICIN SULF 0.3% OPTH(EYE) OINT 3.5GM EACHEYE SCH ×4 (06:52→22:00)
[2019-09-02] MEDS: PRIMIDONE 50 MG TAB PO SCH ×3 (06:52→22:52)
[2019-09-02] MEDS: LEVOTHYROXINE SODIUM 100 MCG TAB PO SCH ×2 (06:53→06:54)
[2019-09-02] MEDS: CeftoloZANE-TAZOB 0.75 GM in D5W 5% 100 ML IV SCH ×3 (06:57→19:01)
[2019-09-02 09:00] VITALS: BP_SYST 113; BP_SYST 121; BP_DIAS 67; BP_DIAS 91
[2019-09-02] MEDS: LISINOPRIL 5 MG TAB PO SCH (10:00)
[2019-09-02] MEDS: FAMOTIDINE 20 MG TAB PO SCH (10:25)
[2019-09-02] MEDS: AMIODARONE HCL 200 MG TAB PO SCH (10:26)
[2019-09-02] MEDS: APIXABAN 2.5 MG TAB PO SCH ×2 (10:26→22:51)
[2019-09-02] MEDS: POLYETHYLENE GLYCOL 17 GM PWDR PO SCH (10:26)
[2019-09-02] MEDS: DIGOXIN 0.125 MG TAB PO SCH (10:27)
[2019-09-02] MEDS: FUROSEMIDE 40 MG TAB PO SCH (10:28)
[2019-09-02] MEDS: FLORASTOR (S. BOULARDII) 250 MG CAP PO SCH (10:28)
[2019-09-02] MEDS: METOPROLOL TARTRATE 25 MG TAB PO SCH ×2 (10:29→22:52)
[2019-09-02] MEDS: HYDROCORTONE 1% TOPICAL CREAM 30 GM TUBE TOP SCH ×2 (10:30→22:00)
[2019-09-02 13:00] VITALS: BP_SYST 126; BP_SYST 127; BP_DIAS 127; BP_DIAS 62; BP_DIAS 76
[2019-09-02] MEDS: VANCOMYCIN 1GM/250ML 250 ML IV SCH (13:06)
[2019-09-02 17:00] VITALS: BP_SYST 103; BP_SYST 127; BP_SYST 133; BP_DIAS 60; BP_DIAS 72; BP_DIAS 77
[2019-09-02 22:00] VITALS: BP 116/66
[2019-09-02] MEDS: LINEZOLID 600MG TABLET PO SCH (22:00)
[2019-09-03] MEDS: TEMAZEPAM 15 MG CAP PO PRN ×2 (00:29→22:10)
[2019-09-03] MEDS: CeftoloZANE-TAZOB 0.75 GM in D5W 5% 100 ML IV SCH ×2 (03:29→13:13)
[2019-09-03 05:00] VITALS: BP 94/64
[2019-09-03] MEDS: GENTAMICIN SULF 0.3% OPTH(EYE) OINT 3.5GM EACHEYE SCH ×4 (06:48→22:58)
[2019-09-03] MEDS: LEVOTHYROXINE SODIUM 100 MCG TAB PO SCH ×2 (06:49→06:50)
[2019-09-03] MEDS: PRIMIDONE 50 MG TAB PO SCH ×3 (06:49→22:08)
[2019-09-03 07:02] LABS: Hematocrit 39.1 % (36.0-46.0); Hemoglobin 12.6 g/dL (12.2-16.2); Mean Corpuscular Hemoglobin 29.2 pg (28.0-32.0); Mean Corpuscular Hgb Conc. 32.3 g/dL (32.0-36.0); Mean Corpuscular Volume 90.6 fL (80.0-100.0); Platelet Count (auto) 290 10^3/uL (140-450); Red Blood Cells 4.31 10^6/uL (4.0-5.20); Red Cell Distribution Width 14.2 % (11.8-14.3); White Blood Cell 15.8 10^3/uL (4.4-10.8)
[2019-09-03 07:08] LABS: Basophils % (manual) 0 (0.0-2.0); Blast Cells 0; Metamyelocytes % 0; Myelocytes % 0; Promyelocytes % 0; Reactive Lymphocytes 0
[2019-09-03 07:27] LABS: Albumin 2.8 g/dL (3.4-5.0); BUN/Creatinine Ratio 35.7; Bilirubin, Total 0.2 mg/dL (0.2-1.0); Calcium 8.7 mg/dL (8.5-10.1); Total Protein 6.3 g/dL (6.4-8.2)
[2019-09-03 07:54] LABS: Band Neutrophils % (manual) 1; Eosinophils % (manual) 1 (0-7); Lymphocytes % (manual) 11 (10.0-50.0); Monocytes % (manual) 8 (0-12)
[2019-09-03 09:00] VITALS: BP 132/78
[2019-09-03] MEDS: HYDROCORTONE 1% TOPICAL CREAM 30 GM TUBE TOP SCH ×2 (10:00→22:09)
[2019-09-03] MEDS: APIXABAN 2.5 MG TAB PO SCH ×2 (10:36→22:07)
[2019-09-03] MEDS: FLORASTOR (S. BOULARDII) 250 MG CAP PO SCH (10:36)
[2019-09-03] MEDS: DIGOXIN 0.125 MG TAB PO SCH (10:36)
[2019-09-03] MEDS: AMIODARONE HCL 200 MG TAB PO SCH (10:36)
[2019-09-03] MEDS: METOPROLOL TARTRATE 25 MG TAB PO SCH ×2 (10:37→22:09)
[2019-09-03] MEDS: FAMOTIDINE 20 MG TAB PO SCH (10:37)
[2019-09-03] MEDS: POLYETHYLENE GLYCOL 17 GM PWDR PO SCH (10:37)
[2019-09-03] MEDS: FUROSEMIDE 40 MG TAB PO SCH (10:37)
[2019-09-03] MEDS: LINEZOLID 600MG TABLET PO SCH ×2 (10:38→22:08)
[2019-09-03] MEDS: LISINOPRIL 5 MG TAB PO SCH (10:38)
[2019-09-03 13:00] VITALS: BP 91/57
[2019-09-03] MEDS ORDERED: CEFTAZIDIME AVIBACTAM IV ONE (15:00)
[2019-09-03] MEDS ORDERED: D5W IV ONE (15:00)
[2019-09-03 17:00] VITALS: BP 108/62
[2019-09-03 22:00] VITALS: BP 103/57
[2019-09-03] MEDS: D5W IV SCH ×2 (22:07→22:57)
[2019-09-03] MEDS: CEFTAZIDIME AVIBACTAM IV SCH ×2 (22:07→22:57)
[2019-09-04 05:00] VITALS: BP 117/67
[2019-09-04 06:06] LABS: White Blood Cell 16.3 10^3/uL (4.4-10.8)
[2019-09-04 06:07] LABS: Hematocrit 39.4 % (36.0-46.0); Hemoglobin 12.5 g/dL (12.2-16.2); Mean Corpuscular Hemoglobin 28.9 pg (28.0-32.0); Mean Corpuscular Hgb Conc. 31.8 g/dL (32.0-36.0); Mean Corpuscular Volume 90.9 fL (80.0-100.0); Platelet Count (auto) 294 10^3/uL (140-450); Red Blood Cells 4.33 10^6/uL (4.0-5.20); Red Cell Distribution Width 14.4 % (11.8-14.3)
[2019-09-04] MEDS: PRIMIDONE 50 MG TAB PO SCH ×3 (06:23→22:36)
[2019-09-04] MEDS: LEVOTHYROXINE SODIUM 100 MCG TAB PO SCH (06:24)
[2019-09-04] MEDS: GENTAMICIN SULF 0.3% OPTH(EYE) OINT 3.5GM EACHEYE SCH ×4 (06:25→22:37)
[2019-09-04 06:41] LABS: Band Neutrophils % (manual) 0; Basophils % (manual) 0 (0.0-2.0); Blast Cells 0; Metamyelocytes % 0; Myelocytes % 0; Promyelocytes % 0; Reactive Lymphocytes 0
[2019-09-04] MEDS: D5W IV SCH ×3 (07:14→22:34)
[2019-09-04] MEDS: CEFTAZIDIME AVIBACTAM IV SCH ×3 (07:14→22:34)
[2019-09-04 07:26] LABS: Eosinophils % (manual) 1 (0-7); Lymphocytes % (manual) 10 (10.0-50.0); Monocytes % (manual) 7 (0-12)
[2019-09-04 08:00] VITALS: BP 106/57
[2019-09-04 09:00] VITALS: BP 106/57
[2019-09-04] MEDS: METOPROLOL TARTRATE 25 MG TAB PO SCH ×2 (10:00→22:35)
[2019-09-04] MEDS: POLYETHYLENE GLYCOL 17 GM PWDR PO SCH (10:00)
[2019-09-04] MEDS: LISINOPRIL 5 MG TAB PO SCH (10:00)
[2019-09-04] MEDS: FLORASTOR (S. BOULARDII) 250 MG CAP PO SCH (10:00)
[2019-09-04] MEDS: AMIODARONE HCL 200 MG TAB PO SCH (10:00)
[2019-09-04] MEDS: APIXABAN 2.5 MG TAB PO SCH ×2 (10:57→22:36)
[2019-09-04] MEDS: FAMOTIDINE 20 MG TAB PO SCH (10:57)
[2019-09-04] MEDS: DIGOXIN 0.125 MG TAB PO SCH (10:59)
[2019-09-04] MEDS: FUROSEMIDE 40 MG TAB PO SCH (10:59)
[2019-09-04] MEDS: HYDROCORTONE 1% TOPICAL CREAM 30 GM TUBE TOP SCH ×2 (11:38→22:37)
[2019-09-04] MEDS: LINEZOLID 600MG TABLET PO SCH ×2 (11:38→22:35)
[2019-09-04 13:00] VITALS: BP 139/71
[2019-09-04 22:00] VITALS: BP 125/56
[2019-09-04] MEDS: TEMAZEPAM 15 MG CAP PO PRN (22:34)
[2019-09-05] MEDS: HYDROcodone-ACET 5/325MG TAB PO PRN ×2 (04:31→22:27)
[2019-09-05 05:00] VITALS: BP 89/50
[2019-09-05] MEDS: LEVOTHYROXINE SODIUM 100 MCG TAB PO SCH (06:49)
[2019-09-05] MEDS: PRIMIDONE 50 MG TAB PO SCH ×3 (06:49→22:12)
[2019-09-05] MEDS: GENTAMICIN SULF 0.3% OPTH(EYE) OINT 3.5GM EACHEYE SCH ×4 (06:50→22:10)
[2019-09-05] MEDS: D5W IV SCH ×3 (06:50→22:10)
[2019-09-05] MEDS: CEFTAZIDIME AVIBACTAM IV SCH ×3 (06:50→22:10)
[2019-09-05 08:00] VITALS: BP 100/53
[2019-09-05 09:00] VITALS: BP 100/53
[2019-09-05] MEDS: METOPROLOL TARTRATE 25 MG TAB PO SCH ×2 (09:04→22:11)
[2019-09-05] MEDS: LISINOPRIL 5 MG TAB PO SCH (09:05)
[2019-09-05] MEDS: AMIODARONE HCL 200 MG TAB PO SCH (09:12)
[2019-09-05] MEDS: FLORASTOR (S. BOULARDII) 250 MG CAP PO SCH (09:13)
[2019-09-05] MEDS: APIXABAN 2.5 MG TAB PO SCH ×2 (09:13→22:11)
[2019-09-05] MEDS: DIGOXIN 0.125 MG TAB PO SCH (09:14)
[2019-09-05] MEDS: FAMOTIDINE 20 MG TAB PO SCH (09:15)
[2019-09-05] MEDS: POLYETHYLENE GLYCOL 17 GM PWDR PO SCH (09:15)
[2019-09-05] MEDS: FUROSEMIDE 40 MG TAB PO SCH (09:15)
[2019-09-05] MEDS: LINEZOLID 600MG TABLET PO SCH ×2 (09:16→22:12)
[2019-09-05] MEDS: HYDROCORTONE 1% TOPICAL CREAM 30 GM TUBE TOP SCH ×2 (09:16→22:12)
[2019-09-05 09:41] LABS: BUN/Creatinine Ratio 36.4; Calcium 8.9 mg/dL (8.5-10.1); Potassium 4.3 mmol/L (3.5-5.1)
[2019-09-05 10:10] LABS: Hematocrit 39.5 % (36.0-46.0); Hemoglobin 12.6 g/dL (12.2-16.2); Mean Corpuscular Hemoglobin 28.9 pg (28.0-32.0); Mean Corpuscular Hgb Conc. 31.9 g/dL (32.0-36.0); Mean Corpuscular Volume 90.6 fL (80.0-100.0); Platelet Count (auto) 335 10^3/uL (140-450); Red Blood Cells 4.36 10^6/uL (4.0-5.20); Red Cell Distribution Width 14.3 % (11.8-14.3); White Blood Cell 16.1 10^3/uL (4.4-10.8)
[2019-09-05 10:16] LABS: Band Neutrophils % (manual) 0; Basophils % (manual) 0 (0.0-2.0); Blast Cells 0; Metamyelocytes % 0; Promyelocytes % 0; Reactive Lymphocytes 0
[2019-09-05 13:31] LABS: Eosinophils % (manual) 6 (0-7); Lymphocytes % (manual) 15 (10.0-50.0); Monocytes % (manual) 10 (0-12); Myelocytes % 2
[2019-09-05 16:56] VITALS: BP 129/60
[2019-09-05 17:00] VITALS: BP 123/64
[2019-09-05 20:00] VITALS: BP 121/78
== END 2019-09-05 23:55 | DRG 871 ==
LOC: EDBD 19:05 → ER 19:07 → TELE 19:08 → TELE-WESTW 08-30 16:09
PROVIDERS: ADMIT Nurse Practitioner; ATTEND Internal Medicine
PROC: 0HBRXZZ Excision of Toe Nail, External Approach (ICD-10-PCS; principal; 2019-08-31)
DX: A41.52 Sepsis due to Pseudomonas (principal); L89.153 Pressure ulcer of sacral region, stage 3; T83.511A Infection and inflammatory reaction due to indwelling urethral catheter, initial encounter; I48.20 Chronic atrial fibrillation, unspecified; I50.30 Unspecified diastolic (congestive) heart failure; Z16.12 Extended spectrum beta lactamase (ESBL) resistance; Z16.24 Resistance to multiple antibiotics; N39.0 Urinary tract infection, site not specified; D64.9 Anemia, unspecified; J44.9 Chronic obstructive pulmonary disease, unspecified; E66.9 Obesity, unspecified; E03.9 Hypothyroidism, unspecified; L85.3 Xerosis cutis; L60.2 Onychogryphosis; I11.0 Hypertensive heart disease with heart failure; I25.10 Atherosclerotic heart disease of native coronary artery without angina pectoris; Y84.6 Urinary catheterization as the cause of abnormal reaction of the patient, or of later complication, without mention of misadventure at the time of the procedure; Z80.3 Family history of malignant neoplasm of breast; Z03.818 Encounter for observation for suspected exposure to other biological agents ruled out; Z87.440 Personal history of urinary (tract) infections; Y92.89 Other specified places as the place of occurrence of the external cause; Z82.3 Family history of stroke; Z82.49 Family history of ischemic heart disease and other diseases of the circulatory system; Z74.01 Bed confinement status; Z91.041 Radiographic dye allergy status; Z91.040 Latex allergy status; Z68.35 Body mass index [BMI] 35.0-35.9, adult; I11.9 Hypertensive heart disease without heart failure
CPT/HCPCS: 36415; 51702; 71045; 73560; 80048; 80053; 81001; 83605; 83735; 84439; 84443; 84484; 85007; 85025; 85027; 85610; 85730; 87040; 87077; 87086; 87088; 87186; 93005; 96365; 96366; 96367; 97163; G0378; J0696; J0714; J2543; J7060